=== PATIENT | male | born 1945 | race Caucasian/White ===

== ENCOUNTER 2016-03-08 12:01 | Emergency (ER) | payer MEDICARE, OTHER ==
[2016-03-08] MEDS ORDERED: SODIUM CHLORIDE 0.9% 1,000 ML IV ONE (13:28)
[2016-03-08] MEDS ORDERED: KETOROLAC 60 MG/2 ML VIAL IVP STA (13:28)
[2016-03-08] MEDS ORDERED: ONDANSETRON 4 MG/2 ML VIAL IVP STA (13:28)
[2016-03-08] MEDS ORDERED: HYDROmorphone 1 MG/ML SYRINGE IVP STA (13:28)
[2016-03-08] MEDS ORDERED: HYDROmorphone 1 MG/ML SYRINGE ONE (13:36)
[2016-03-08] MEDS ORDERED: ONDANSETRON 4 MG/2 ML VIAL ONE (13:36)
[2016-03-08] MEDS ORDERED: KETOROLAC 30 MG/ML VIAL ONE (13:36)
== END 2016-03-08 15:46 | disposition home or self-care (01) ==
DX: N13.2 Hydronephrosis with renal and ureteral calculous obstruction (principal); I10 Essential (primary) hypertension; E11.9 Type 2 diabetes mellitus without complications; Z79.84 Long term (current) use of oral hypoglycemic drugs; Z79.82 Long term (current) use of aspirin; Z87.891 Personal history of nicotine dependence
CPT/HCPCS: 36415; 74176; 80053; 81001; 83690; 96374; 96375; 99283; 99284; J1170

== ENCOUNTER 2016-03-13 18:39 | Emergency (ER) | payer MEDICARE, OTHER ==
[2016-03-13] MEDS ORDERED: ONDANSETRON 4 MG/2 ML VIAL IVP STA (18:52)
[2016-03-13] MEDS ORDERED: HYDROmorphone 1 MG/ML SYRINGE IVP STA (18:52)
[2016-03-13] MEDS ORDERED: KETOROLAC 60 MG/2 ML VIAL IVP STA (18:52)
[2016-03-13] MEDS ORDERED: SODIUM CHLORIDE 0.9% 1,000 ML IV ONE ×2 (18:52→18:58)
[2016-03-13] MEDS ORDERED: HYDROmorphone 1 MG/ML SYRINGE ONE (18:58)
[2016-03-13] MEDS ORDERED: KETOROLAC 30 MG/ML VIAL ONE (18:58)
[2016-03-13] MEDS ORDERED: ONDANSETRON 4 MG/2 ML VIAL ONE (18:58)
[2016-03-13] MEDS ORDERED: LACTATED RINGERS 1,000 ML IV STA (19:52)
== END 2016-03-13 19:52 | disposition home or self-care (01) ==
DX: N20.1 Calculus of ureter (principal); E86.0 Dehydration; I10 Essential (primary) hypertension; E11.9 Type 2 diabetes mellitus without complications; Z79.84 Long term (current) use of oral hypoglycemic drugs; Z79.82 Long term (current) use of aspirin; Z87.891 Personal history of nicotine dependence
CPT/HCPCS: 36415; 80048; 96374; 96375; 99283; 99285; J1170

== ENCOUNTER 2016-03-15 10:57 | Emergency (ER) | payer MEDICARE, OTHER ==
[2016-03-15] MEDS ORDERED: LACTATED RINGERS 1,000 ML IV STA (12:02)
[2016-03-15] MEDS ORDERED: KETOROLAC 60 MG/2 ML VIAL IVP STA (12:02)
[2016-03-15] MEDS ORDERED: ONDANSETRON 4 MG/2 ML VIAL IVP STA (12:02)
[2016-03-15] MEDS ORDERED: HYDROmorphone 1 MG/ML SYRINGE IVP STA (12:02)
[2016-03-15] MEDS ORDERED: HYDROmorphone 1 MG/ML SYRINGE ONE (12:12)
[2016-03-15] MEDS ORDERED: KETOROLAC 30 MG/ML VIAL ONE (12:12)
[2016-03-15] MEDS ORDERED: ONDANSETRON 4 MG/2 ML VIAL ONE (12:12)
== END 2016-03-15 13:49 | disposition home or self-care (01) ==
DX: N20.1 Calculus of ureter (principal); E11.9 Type 2 diabetes mellitus without complications; Z79.82 Long term (current) use of aspirin; E78.00 Pure hypercholesterolemia, unspecified; I10 Essential (primary) hypertension; Z79.84 Long term (current) use of oral hypoglycemic drugs; Z87.891 Personal history of nicotine dependence
CPT/HCPCS: 36415; 80048; 96374; 96375; 99283; 99284; J1170

== ENCOUNTER 2016-07-06 10:23 | Outpatient (CLI) | payer MEDICARE, OTHER | END 2016-07-06 10:24 | disposition home or self-care (01) | LOC: SC 10:23 | PROVIDERS: ATTEND Nurse Practitioner Family | DX: G47.33 Obstructive sleep apnea (adult) (pediatric) (principal) | CPT/HCPCS: 99214; G0463; 99212 ==

== ENCOUNTER 2016-08-04 09:40 | Outpatient (CLI) | payer MEDICARE, OTHER ==
[2016-08-04 13:27] LABS: CALCIUM 9.4 mg/dL (8.5-10.3); CREATININE 1.1 mg/dL (0.6-1.2); POTASSIUM 4.2 mmol/L (3.5-5.0)
[2016-08-04 14:18] LABS: HEMOGLOBIN A1C 0.91 g/dL
== END 2016-08-04 09:41 | disposition home or self-care (01) ==
LOC: LAB.WCP 09:40
PROVIDERS: ATTEND Family Medicine
DX: K21.9 Gastro-esophageal reflux disease without esophagitis (principal)
CPT/HCPCS: 36415; 80048; 82043; 83036; 84153

== ENCOUNTER 2016-11-08 07:48 | Outpatient (CLI) | payer MEDICARE, OTHER ==
[2016-11-08 12:37] LABS: BASOPHILS % (AUTO) 0.3 %; EOSINOPHILS # (AUTO) 0.2 10^3/uL (0.0-0.7); EOSINOPHILS % (AUTO) 2.4 %; HCT - HEMATOCRIT 44.1 % (42.0-52.0); HGB - HEMOGLOBIN 14.4 g/dL (14.0-18.0); LYMPHOCYTES # (AUTO) 2.7 10^3/uL (1.5-3.5); LYMPHOCYTES % (AUTO) 31.3 %; MEAN CORPUSCULAR HEMOGLOBIN 29.6 pg (27.0-31.0); MEAN CORPUSCULAR HGB CONC 32.7 g/dL (32.0-36.0); MEAN CORPUSCULAR VOLUME 90.5 fL (80.0-94.0); MEAN PLATELET VOLUME 8.8 fL (7.4-11.4); MONOCYTES # (AUTO) 0.6 10^3/uL (0.0-1.0); MONOCYTES % (AUTO) 6.7 %; NEUTROPHILS # (AUTO) 5.2 10^3/uL (1.5-6.6); NEUTROPHILS % (AUTO) 59.3 %; NUCLEATED RED BLOOD CELLS AUTO 0.1 /100WBC; RED BLOOD COUNT 4.87 10^6/uL (4.70-6.10); RED CELL DISTRIBUTION WIDTH 14.5 % (12.0-15.0); UNCORRECTED WHITE BLOOD COUNT 8.7 x10^3/uL; WHITE BLOOD COUNT 8.7 x10^3/uL (4.8-10.8)
[2016-11-08 12:53] LABS: ALBUMIN/GLOBULIN RATIO 1.5 (1.0-2.2); BILIRUBIN,TOTAL 1.4 mg/dL (0.2-1.0); BUN - BLOOD UREA NITROGEN 17 mg/dL (6-20); CALCIUM 9.1 mg/dL (8.5-10.3); CARBON DIOXIDE - CO2 31 mmol/L (21-32); CHLORIDE 100 mmol/L (101-111); CHOL/HDL RATIO 4.1 (<5.0); CHOLESTEROL 132 mg/dL; CREATININE 1.3 mg/dL (0.6-1.2); GFR - MDRD 55 (>89); GLUCOSE 139 mg/dL (70-100); HDL CHOLESTEROL 32 mg/dL; LDL/HDL RATIO 2.1 (<3.6); POTASSIUM 3.9 mmol/L (3.5-5.0); SODIUM 138 mmol/L (135-145); TOTAL PROTEIN 7.2 g/dL (6.7-8.2); TRIGLYCERIDES 162 mg/dL; VLDL CHOLESTEROL 32 mg/dL
[2016-11-08 13:42] LABS: HEMOGLOBIN A1C 0.85 g/dL
== END 2016-11-08 07:49 | disposition home or self-care (01) ==
LOC: LAB.WCP 07:48
PROVIDERS: ATTEND Family Medicine
DX: I10 Essential (primary) hypertension (principal); E11.9 Type 2 diabetes mellitus without complications; Z12.5 Encounter for screening for malignant neoplasm of prostate; E78.5 Hyperlipidemia, unspecified
CPT/HCPCS: 36415; 80053; 80061; 83036; 85025; G0103; 84153

== ENCOUNTER 2016-12-03 14:47 | Emergency (ER) | payer MEDICARE, OTHER ==
[2016-12-03 14:59] VITALS: BP 134/78
--- NOTE | 2016-12-03 15:41 | ED Physician Documentation ---
PD HPI LOWER EXT INJURY - Stated complaint Stated Complaint: LT FOOT PX - Chief complaint Chief Complaint: Ext Problem - History obtained from History obtained from: Patient - History of Present Illness PD HPI LOW EXT INJURY LOCATION: Left, Toe (2nd) Type of injury: Blunt / blow Where injury occurred: Home Timing - onset: Yesterday Timing - duration: Days (1) Timing - details: Abrupt onset, Still present Improved by: Rest, Immobilization Worsened by: Moving, Palpating Associated symptoms: No: Weakness, Numbness, Tingling Contributing factors: No: Anticoagulated Similar symptoms before: Has not had sx before Recently seen: Not recently seen - Additional information Additional information: 71-year-old diabetic male has stubbed his toe has a toenail that is avulsed and may have some bleeding from the toe. He is super concerned about his toes as he has had a prior crush injury to the left foot. He does get regular care by muffler tender. Review of Systems Constitutional: denies: Fever Eyes: denies: Decreased vision Ears: denies: Ear pain Nose: denies: Congestion Throat: denies: Sore throat Respiratory: denies: Cough GI: denies: Vomiting Musculoskeletal: denies: Neck pain, Back pain, Extremity pain PD PAST MEDICAL HISTORY - Past Medical History Past Medical History: Yes Cardiovascular: Hypertension, High cholesterol Endocrine/Autoimmune: Type 2 diabetes : Kidney stones - Past Surgical History Past Surgical History: Yes Ortho: Spine surgery HEENT: Tonsil/Adenoidectomy - Present Medications Home Medications: Ambulatory Orders Medication Instructions Recorded Confirmed Aspirin [Aspir 81] 81 mg PO DAILY 05/21/13 12/03/16 Esomeprazole Magnesium [Nexium] 20 mg PO DAILY 05/21/13 12/03/16 Hydrochlorothiazide 25 mg PO DAILY 05/21/13 12/03/16 Lisinopril 20 mg PO DAILY 05/21/13 12/03/16 Metformin HCl [Glucophage] 1,000 mg PO BID 05/21/13 12/03/16 Metoprolol Succinate [Toprol Xl] 50 mg PO DAILY 05/21/13 12/03/16 Simvastatin 20 mg PO DAILY 05/21/13 12/03/16 - Allergies Allergies/Adverse Reactions: Allergies Allergy/AdvReac Type Severity Reaction Status Date / Time Penicillins Allergy Severe swelling Verified 12/03/16 14:58 - Social History Does the pt smoke?: No Smoking Status: Never smoker Does the pt drink ETOH?: Yes ETOH Use: Wine, Beer, Liquor Does the pt have substance abuse?: No - Immunizations Immunizations are current?: Yes - POLST Patient has POLST: No PD ED PE NORMAL - Vitals Vital signs reviewed: Yes (normal) - General General: No acute distress, Well developed/nourished - HEENT HEENT: Atraumatic, PERRL - Respiratory Respiratory: No respiratory distress - Extremities Extremities: Other (The tiny toenail left on the second toe of the left foot is nearly completely avulsed. There is no sign of infection. ) - Neuro Neuro: Alert and oriented X 3, No motor deficit, No sensory deficit, Normal speech - Psych Psych: Normal mood, Normal affect Results - Vitals Vitals: Vital Signs - 24 hr 12/03/16 14:55 Temperature 36.4 C L Heart Rate 83 Respiratory 18 Rate Blood Pressure 134/78 H O2 Saturation 98 Oxygen O2 Source Room air PD MEDICAL DECISION MAKING - ED course Complexity details: considered differential, d/w patient ED course: partial avulsion of the toenail of the left foot without signs of infection. Departure - Departure Disposition: 01 Home, Self Care Clinical Impression: Avulsion of toenail of left foot Instructions: ED Avulsion Nail Complete Follow-Up: Demetrius Franklin MD [Primary Care Provider] - Discharge Date/Time: 12/03/16 15:47
== END 2016-12-03 15:47 | disposition home or self-care (01) ==
LOC: ED 14:47
DX: S91.205A Unspecified open wound of left lesser toe(s) with damage to nail, initial encounter (principal); W22.8XXA Striking against or struck by other objects, initial encounter; Y92.009 Unspecified place in unspecified non-institutional (private) residence as the place of occurrence of the external cause; E11.9 Type 2 diabetes mellitus without complications; Z79.84 Long term (current) use of oral hypoglycemic drugs; I10 Essential (primary) hypertension; Z79.82 Long term (current) use of aspirin
CPT/HCPCS: 99282; 99283

== ENCOUNTER 2017-03-07 12:53 | Emergency (ER) | payer MEDICARE, OTHER ==
[2017-03-07] MEDS ORDERED: LIDOCAINE-MPF 2% 9 ML in SODIUM CHLORIDE 0.9% 50 ML IM STA (13:18)
[2017-03-07] MEDS ORDERED: SODIUM CHLORIDE 0.9% 1,000 ML IV ONE (13:20)
--- NOTE | 2017-03-07 13:22 | ED Physician Documentation ---
History of Present Illness - Stated complaint Stated Complaint: R SIDE PX - Chief complaint Chief Complaint: Abd Pain - History obtained from History obtained from: Patient, Family - History of Present Illness Timing: How many days ago (2) Pain level max: 9 Pain level now: 9 Improved by: nothing Worsened by: nothing - Additonal information Additional information: Patient is a 71-year-old gentleman who presents to the emergency department with right flank pain for the past several days. States that this is similar to his prior kidney stones. Has been taking Tylenol at home for pain. His last ureteral stone was 6 x 8 mm and had to be retrieved by urology. No fevers. No vomiting. No dysuria. No gross hematuria. Review of Systems Ten Systems: 10 systems reviewed and negative Constitutional: denies: Fever, Chills GI: denies: Vomiting Skin: denies: Rash Musculoskeletal: denies: Neck pain, Back pain Neurologic: denies: Headache PD PAST MEDICAL HISTORY - Past Medical History Past Medical History: Yes Cardiovascular: Hypertension, High cholesterol Endocrine/Autoimmune: Type 2 diabetes : Kidney stones - Past Surgical History Past Surgical History: Yes Ortho: Spine surgery HEENT: Tonsil/Adenoidectomy - Present Medications Home Medications: Ambulatory Orders Medication Instructions Recorded Confirmed Aspirin [Aspir 81] 81 mg PO DAILY 05/21/13 03/07/17 Esomeprazole Magnesium [Nexium] 20 mg PO DAILY 05/21/13 03/07/17 Hydrochlorothiazide 25 mg PO DAILY 05/21/13 03/07/17 Lisinopril 20 mg PO DAILY 05/21/13 03/07/17 Metformin HCl [Glucophage] 1,000 mg PO BID 05/21/13 03/07/17 Metoprolol Succinate [Toprol Xl] 50 mg PO DAILY 05/21/13 03/07/17 Simvastatin 20 mg PO DAILY 05/21/13 03/07/17 Ibuprofen [Motrin] 800 mg PO Q8H PRN #30 tablet 03/07/17 Ondansetron Odt [Zofran] 4 mg TL Q6H PRN #10 tablet 03/07/17 Oxycodone HCl/Acetaminophen 1 - 2 each PO Q6H PRN #14 tablet 03/07/17 [Percocet 5-325 mg Tablet] - Allergies Allergies/Adverse Reactions: Allergies Allergy/AdvReac Type Severity Reaction Status Date / Time Penicillins Allergy Severe swelling Verified 12/03/16 14:58 - Social History Does the pt smoke?: No Smoking Status: Never smoker Does the pt drink ETOH?: Yes Does the pt have substance abuse?: No - Immunizations Immunizations are current?: Yes - POLST Patient has POLST: No PD ED PE NORMAL - Vitals Vital signs reviewed: Yes - General General: Alert and oriented X 3, Other (appears in pain) - HEENT HEENT: Moist mucous membranes - Neck Neck: Supple, no meningeal sign - Cardiac Cardiac: RRR - Respiratory Respiratory: No respiratory distress, Clear bilaterally - Abdomen Abdomen: Soft, Non tender, Non distended - Back Back: No CVA TTP - Derm Derm: Warm and dry - Neuro Neuro: Alert and oriented X 3 Results - Vitals Vitals: Vital Signs - 24 hr 03/07/17 03/07/17 03/07/17 12:57 13:46 13:59 Temperature 36.4 C L Heart Rate 77 63 Respiratory 20 60 H 22 Rate Blood Pressure 132/80 H 114/78 124/88 H O2 Saturation 96 95 96 03/07/17 15:39 Temperature 36.8 C Heart Rate 54 L Respiratory 18 Rate Blood Pressure 123/68 O2 Saturation 95 Oxygen O2 Source Room air - Labs Labs: Laboratory Tests 03/07/17 03/07/17 03/07/17 13:02 13:15 13:15 WBC 12.5 H RBC 5.27 Hgb 15.6 Hct 47.0 MCV 89.1 MCH 29.6 MCHC 33.3 RDW 14.0 Plt Count 274 MPV 8.1 Neut # 9.0 H Lymph # 2.3 Wilkinson # 1.0 Eos # 0.1 Baso # 0.0 Absolute Nucleated RBC 0.00 Nucleated RBC % 0.0 Sodium 136 Potassium 3.8 Chloride 99 L Carbon Dioxide 26 Anion Gap 11.0 BUN 24 H Creatinine 1.3 H Estimated GFR (MDRD) 55 L Glucose 151 H Calcium 9.3 Total Bilirubin 0.7 AST 19 ALT 12 Alkaline Phosphatase 71 Total Protein 8.2 Albumin 4.4 Globulin 3.8 Albumin/Globulin Ratio 1.2 Lipase 21 L Urine Color YELLOW Urine Clarity CLEAR Urine pH 5.5 Ur Specific [place] 1.025 Urine Protein NEGATIVE Urine Glucose (UA) NEGATIVE Urine Ketones NEGATIVE Urine Occult Blood MODERATE H Urine Nitrite NEGATIVE Urine Bilirubin NEGATIVE Urine Urobilinogen 0.2 (NORMAL) Ur Leukocyte Esterase NEGATIVE Urine RBC 11-25 H Urine WBC 0-3 Ur Squamous Epith Cells NONE SEEN Urine Crystals 0-2 Calcium Oxalate Urine Bacteria Rare Ur Microscopic Review INDICATED Urine Culture Comments NOT INDICATED - Rads (name of study) CT abd/pelvis Radiology: Prelim report reviewed, EMP read contemporaneously, See rad report ( Mild cardiomegaly. Large bilateral renal cysts. No obstructive uropathy. Left nephrolithiasis. Grade 1 spondylolisthesis L5-S1. Colonic diverticulosis. . Normal appendix. . No radiographic explanation for this gentleman's right-sided symptoms. ) PD MEDICAL DECISION MAKING - ED course Complexity details: reviewed old records, reviewed results, re-evaluated patient , considered differential, d/w patient, d/w family ED course: Patient is a 71-year-old male who presents to the emergency department with right flank pain. Consistent with his prior history of ureteral stones. Pain resolved in the emergency department. Possible that he passed the stone? He does have calcium oxalate as well as blood in his urine. Will prescribe pain medication for home in case the pain returns. He is well-appearing, nontoxic. Afebrile. No evidence of infected stone. Patient counseled regarding signs and symptoms for which I believe and urgent re-evaluation would be necessary. Patient with good understanding of and agreement to plan and is comfortable going home at this time This document was made in part using voice recognition software. While efforts are made to proofread this document, sound alike and grammatical errors may occur. is driving him home Departure - Departure Disposition: 01 Home, Self Care Clinical Impression: Ureteral stone Condition: Good Instructions: ED Stone Renal W Colic Follow-Up: Demetrius Franklin MD [Primary Care Provider] - Within 1 week Prescriptions: Ibuprofen [Motrin] 800 mg PO Q8H PRN #30 tablet PRN Reason: PAIN &/OR FEVER Ondansetron Odt [Zofran] 4 mg TL Q6H PRN #10 tablet PRN Reason: Nausea / Vomiting Oxycodone HCl/Acetaminophen [Percocet 5-325 mg Tablet] 1 - 2 each PO Q6H PRN # 14 tablet PRN Reason: pain Comments: Return if you worsen. Drink plenty of fluids at home. Discharge Date/Time: 03/07/17 15:50
[2017-03-07] MEDS ORDERED: LIDOCAINE-MPF 2% 9 ML in SODIUM CHLORIDE 0.9% 50 ML IV STA (13:26)
[2017-03-07 13:34] LABS: BILIRUBIN,URINE NEGATIVE (NEGATIVE); GLUCOSE, URINE (UA) NEGATIVE (NEGATIVE); KETONES,URINE (UA) NEGATIVE (NEGATIVE); LEUKOCYTE ESTERASE, URINE NEGATIVE (NEGATIVE); NITRITE,URINE NEGATIVE (NEGATIVE); OCCULT BLOOD,URINE MODERATE (NEGATIVE); PH,URINE 5.5 PH (5.0-7.5); PROTEIN,URINE NEGATIVE (NEGATIVE); UROBILINOGEN,URINE 0.2 (NORMAL) E.U./dL (NORMAL)
[2017-03-07 13:36] LABS: CLARITY,URINE CLEAR (CLEAR)
[2017-03-07 13:40] LABS: BASOPHILS % (AUTO) 0.2 %; EOSINOPHILS # (AUTO) 0.1 10^3/uL (0.0-0.7); EOSINOPHILS % (AUTO) 1.1 %; HGB - HEMOGLOBIN 15.6 g/dL (14.0-18.0); LYMPHOCYTES # (AUTO) 2.3 10^3/uL (1.5-3.5); LYMPHOCYTES % (AUTO) 18.6 %; MEAN CORPUSCULAR HEMOGLOBIN 29.6 pg (27.0-31.0); MEAN CORPUSCULAR HGB CONC 33.3 g/dL (32.0-36.0); MEAN CORPUSCULAR VOLUME 89.1 fL (80.0-94.0); MEAN PLATELET VOLUME 8.1 fL (7.4-11.4); MONOCYTES % (AUTO) 7.8 %; NEUTROPHILS % (AUTO) 72.3 %; PLT - PLATELET COUNT 274 10^3/uL (130-450); RED BLOOD COUNT 5.27 10^6/uL (4.70-6.10); WHITE BLOOD COUNT 12.5 x10^3/uL (4.8-10.8)
[2017-03-07 13:41] LABS: ALBUMIN 4.4 g/dL (3.2-5.5); ALBUMIN/GLOBULIN RATIO 1.2 (1.0-2.2); BILIRUBIN,TOTAL 0.7 mg/dL (0.2-1.0); CALCIUM 9.3 mg/dL (8.5-10.3); CREATININE 1.3 mg/dL (0.6-1.2); TOTAL PROTEIN 8.2 g/dL (6.7-8.2)
[2017-03-07 13:54] LABS: BACTERIA,URINE Rare /HPF (None Seen); CRYSTALS,URINE 0-2 Calcium Oxalate /LPF; SQUAMOUS EPITHELIAL CELL,UR NONE SEEN (<= Few)
[2017-03-07] MEDS ORDERED: KETOROLAC 60 MG/2 ML VIAL IVP STA (14:00)
--- NOTE | 2017-03-07 15:04 | CT Preliminary Report ---
Exam: CT ABDOMEN/PELVIS W/O IMPRESSION: 1. Mild cardiomegaly. 2. Large bilateral renal cysts. No obstructive uropathy. 3. Left nephrolithiasis. 4. Grade 1 spondylolisthesis L5-S1. 5. Colonic diverticulosis. 6. Normal appendix. 7. No radiographic explanation for this gentleman's right-sided symptoms. [facility] SITE ID: [id number]
[2017-03-07] MEDS ORDERED: HYDROmorphone 1 MG/ML SYRINGE IVP STA (15:15)
--- NOTE | 2017-03-07 15:16 | CT Report ---
EXAM: CT ABDOMEN AND PELVIS EXAM DATE: 03/07/2017 02:21 PM. CLINICAL HISTORY: Right flank pain, history of renal stones. COMPARISONS: 03/08/2016. TECHNIQUE: Routine helical CT imaging was performed through the abdomen and pelvis. IV contrast: None . Enteric contrast: No. Reconstructions: Coronal and sagittal. In accordance with CT protocol optimization, one or more of the following dose reduction techniques w ere utilized for this exam: automated exposure control, adjustment of mA and/or KV based on patient s ize, or use of iterative reconstructive technique. FINDINGS: Lung Bases: Mild cardiomegaly. Liver: Calcified granulomata. Gallbladder/Bile Ducts: Unremarkable. Spleen: Normal. Pancreas: Normal. Adrenal Glands: Normal. Kidneys: Multiple 6 cm and smaller renal cysts bilaterally. No hydronephrosis. Both ureters are small. The 7 x 10 mm stone previously seen located within the medial aspect of the left renal calyx is now l ocated within an inferior left renal calyx. No additional renal stones. No solid renal mass lesions. Peritoneal Cavity/Bowel: Diverticular off the colon. No free fluid, free air or adenopathy. No masses or acute inflammatory process. The appendix is well visualized and normal. Pelvic Organs: Normal. The bladder and visualized pelvic organs are within normal limits. Vasculature: No aneurysms or other significant abnormality. Bones: Grade 1 spondylolisthesis L5-S1. Other: None. IMPRESSION: 1. Mild cardiomegaly. 2. Large bilateral renal cysts. No obstructive uropathy. 3. Left nephrolithiasis. 4. Grade 1 spondylolisthesis L5-S1. 5. Colonic diverticulosis. 6. Normal appendix. 7. No radiographic explanation for this gentleman's right-sided symptoms. [facility] Referring Provider Line: [phone] SITE ID: [id number]
[2017-03-07 15:40] VITALS: BP 123/68
== END 2017-03-07 15:50 | disposition home or self-care (01) ==
LOC: ED 12:53
DX: N20.2 Calculus of kidney with calculus of ureter (principal); Z87.442 Personal history of urinary calculi; N28.1 Cyst of kidney, acquired; I10 Essential (primary) hypertension; E78.00 Pure hypercholesterolemia, unspecified; E11.9 Type 2 diabetes mellitus without complications; Z79.84 Long term (current) use of oral hypoglycemic drugs; Z79.82 Long term (current) use of aspirin
CPT/HCPCS: 36415; 74176; 80053; 81001; 83690; 85025; 96361; 96374; 96375; 99284; J1170; J7040; 81003; 87086

== ENCOUNTER 2017-03-24 10:11 | Outpatient (CLI) | payer MEDICARE, OTHER | END 2017-03-24 10:12 | disposition home or self-care (01) | LOC: LAB 10:11 | PROVIDERS: ATTEND Family Medicine | DX: Z53.9 Procedure and treatment not carried out, unspecified reason (principal) ==

== ENCOUNTER 2017-03-24 11:00 | Outpatient (CLI) | payer MEDICARE, OTHER ==
[2017-03-24 13:13] LABS: HB2 TOTAL 16.3 g/dL; HEMOGLOBIN A1C 1.03 g/dL; HEMOGLOBIN A1C % 7.9 % (4.6-6.2)
[2017-03-24 13:22] LABS: ALBUMIN 4.2 g/dL (3.2-5.5); ALBUMIN/GLOBULIN RATIO 1.4 (1.0-2.2); CALCIUM 9.1 mg/dL (8.5-10.3); CREATININE 1.2 mg/dL (0.6-1.2); TOTAL PROTEIN 7.2 g/dL (6.7-8.2)
== END 2017-03-24 11:01 | disposition home or self-care (01) ==
LOC: LAB.WCP 11:00
PROVIDERS: ATTEND Family Medicine
DX: M76.899 Other specified enthesopathies of unspecified lower limb, excluding foot (principal); E11.9 Type 2 diabetes mellitus without complications
CPT/HCPCS: 36415; 80053; 83036

== ENCOUNTER 2017-07-25 08:00 | Outpatient (CLI) | payer MEDICARE, OTHER ==
[2017-07-25 13:16] LABS: ALBUMIN 3.9 g/dL (3.2-5.5); ALBUMIN/GLOBULIN RATIO 1.2 (1.0-2.2); CREATININE 1.3 mg/dL (0.6-1.2); TOTAL PROTEIN 7.1 g/dL (6.7-8.2)
[2017-07-25 19:50] LABS: HB2 TOTAL 16.9 g/dL; HEMOGLOBIN A1C 0.77 g/dL; HEMOGLOBIN A1C % 6.3 % (4.6-6.2)
== END 2017-07-25 08:01 | disposition home or self-care (01) ==
LOC: LAB.WCP 08:00
PROVIDERS: ATTEND Family Medicine
DX: E11.40 Type 2 diabetes mellitus with diabetic neuropathy, unspecified (principal); I10 Essential (primary) hypertension
CPT/HCPCS: 36415; 80053; 83036

== ENCOUNTER 2017-08-08 10:04 | Outpatient (CLI) | END 2017-08-08 10:05 | disposition home or self-care (01) | CPT/HCPCS: 99214; G0463 ==

== ENCOUNTER 2017-10-03 10:33 | Outpatient (CLI) | payer MEDICARE, OTHER ==
[2017-10-03 14:07] LABS: BASOPHILS % (AUTO) 0.2 %; EOSINOPHILS # (AUTO) 0.3 10^3/uL (0.0-0.7); EOSINOPHILS % (AUTO) 2.5 %; HGB - HEMOGLOBIN 14.9 g/dL (14.0-18.0); MEAN CORPUSCULAR HEMOGLOBIN 30.2 pg (27.0-31.0); MEAN CORPUSCULAR HGB CONC 33.7 g/dL (32.0-36.0); MEAN CORPUSCULAR VOLUME 89.4 fL (80.0-94.0); MEAN PLATELET VOLUME 8.4 fL (7.4-11.4); MONOCYTES # (AUTO) 0.6 10^3/uL (0.0-1.0); NEUTROPHILS # (AUTO) 6.6 10^3/uL (1.5-6.6); NEUTROPHILS % (AUTO) 62.3 %; PLT - PLATELET COUNT 255 10^3/uL (130-450); RED BLOOD COUNT 4.93 10^6/uL (4.70-6.10); WHITE BLOOD COUNT 10.5 x10^3/uL (4.8-10.8)
[2017-10-03 14:26] LABS: ALBUMIN 4.1 g/dL (3.2-5.5); ALBUMIN/GLOBULIN RATIO 1.3 (1.0-2.2); CALCIUM 9.1 mg/dL (8.5-10.3); CREATININE 0.5 mg/dL (0.6-1.2); TOTAL PROTEIN 7.3 g/dL (6.7-8.2)
== END 2017-10-03 10:34 | disposition home or self-care (01) ==
LOC: LAB.WCP 10:33
PROVIDERS: ATTEND Physician Assistant Medical
DX: R05 Cough (principal)
CPT/HCPCS: 36415; 80053; 85025

== ENCOUNTER 2018-01-10 10:21 | Outpatient (CLI) | payer MEDICARE, OTHER | END 2018-01-10 10:22 | disposition home or self-care (01) | LOC: SC 10:21 | PROVIDERS: ATTEND Nurse Practitioner Family | DX: G47.33 Obstructive sleep apnea (adult) (pediatric) (principal) | CPT/HCPCS: 99214; G0463; 99212 ==

== ENCOUNTER 2018-01-24 07:41 | Outpatient (CLI) | payer MEDICARE, OTHER ==
[2018-01-24 13:55] LABS: ALBUMIN 3.9 g/dL (3.2-5.5); ALBUMIN/GLOBULIN RATIO 1.1 (1.0-2.2); BILIRUBIN,TOTAL 0.8 mg/dL (0.2-1.0); CALCIUM 9.2 mg/dL (8.5-10.3); CREATININE 1.2 mg/dL (0.6-1.2); HB2 TOTAL 16.6 g/dL; HEMOGLOBIN A1C 0.81 g/dL; HEMOGLOBIN A1C % 6.6 % (4.6-6.2); TOTAL PROTEIN 7.6 g/dL (6.7-8.2)
== END 2018-01-24 23:59 | disposition home or self-care (01) ==
LOC: LAB.WCP 07:41
PROVIDERS: ATTEND Family Medicine
DX: N40.0 Benign prostatic hyperplasia without lower urinary tract symptoms (principal); E11.9 Type 2 diabetes mellitus without complications; N20.9 Urinary calculus, unspecified; I10 Essential (primary) hypertension
CPT/HCPCS: 36415; 80053; 82043; 83036

== ENCOUNTER 2018-04-11 10:01 | Outpatient (CLI) | payer MEDICARE, OTHER | END 2018-04-11 10:02 | disposition home or self-care (01) | LOC: SC 10:01 | PROVIDERS: ATTEND Nurse Practitioner Family | DX: G47.33 Obstructive sleep apnea (adult) (pediatric) (principal) | CPT/HCPCS: 99214; G0463; 99212 ==

== ENCOUNTER 2018-06-29 12:09 | Outpatient (CLI) | payer MEDICARE, OTHER ==
--- NOTE | 2018-06-29 14:19 | XRAY Report ---
Reason: COUGH Procedure Date: 06/29/2018 Accession Number: [id number] / [id number] Procedure: WCP - Chest 2 View X-Ray CPT Code: 71149 FULL RESULT: EXAM: CHEST RADIOGRAPHY EXAM DATE: 06/29/2018 12:22 PM. CLINICAL HISTORY: Cough. COMPARISON: CHEST 2 VIEW PA/LAT 10/03/2017 9:48 AM. TECHNIQUE: 2 views. FINDINGS: Lungs/Pleura: No focal opacities evident. No pleural effusion. No pneumothorax. Normal volumes. Mediastinum: Heart and mediastinal contours are unremarkable. Other: None. IMPRESSION: No acute airspace disease is detected. [facility]
== END 2018-06-29 12:10 | disposition home or self-care (01) ==
LOC: DI.WCP 12:09
PROVIDERS: ATTEND Family Medicine
DX: R05 Cough (principal)
CPT/HCPCS: 71046

== ENCOUNTER 2018-07-31 08:38 | Outpatient (CLI) | payer MEDICARE, OTHER ==
[2018-07-31 14:39] LABS: BASOPHILS % (AUTO) 0.3 %; EOSINOPHILS # (AUTO) 0.2 10^3/uL (0.0-0.7); EOSINOPHILS % (AUTO) 2.2 %; HGB - HEMOGLOBIN 14.5 g/dL (14.0-18.0); LYMPHOCYTES # (AUTO) 2.9 10^3/uL (1.5-3.5); LYMPHOCYTES % (AUTO) 35.6 %; MEAN CORPUSCULAR HEMOGLOBIN 29.3 pg (27.0-31.0); MEAN CORPUSCULAR HGB CONC 32.6 g/dL (32.0-36.0); MEAN CORPUSCULAR VOLUME 89.7 fL (80.0-94.0); MEAN PLATELET VOLUME 8.2 fL (7.4-11.4); MONOCYTES # (AUTO) 0.6 10^3/uL (0.0-1.0); MONOCYTES % (AUTO) 7.3 %; NEUTROPHILS # (AUTO) 4.5 10^3/uL (1.5-6.6); NEUTROPHILS % (AUTO) 54.6 %; PLT - PLATELET COUNT 237 10^3/uL (130-450); RED BLOOD COUNT 4.95 10^6/uL (4.70-6.10); RED CELL DISTRIBUTION WIDTH 14.5 % (12.0-15.0); WHITE BLOOD COUNT 8.2 x10^3/uL (4.8-10.8)
[2018-07-31 14:51] LABS: ALBUMIN 4.1 g/dL (3.2-5.5); ALBUMIN/GLOBULIN RATIO 1.2 (1.0-2.2); BILIRUBIN,TOTAL 0.7 mg/dL (0.2-1.0); CALCIUM 9.4 mg/dL (8.5-10.3); CREATININE 1.1 mg/dL (0.6-1.2); TOTAL PROTEIN 7.5 g/dL (6.7-8.2)
[2018-07-31 15:01] LABS: HB2 TOTAL 15.2 g/dL; HEMOGLOBIN A1C 0.83 g/dL; HEMOGLOBIN A1C % 7.1 % (4.6-6.2)
== END 2018-07-31 08:39 | disposition home or self-care (01) ==
LOC: LAB.WCP 08:38
PROVIDERS: ATTEND Family Medicine
DX: G47.9 Sleep disorder, unspecified (principal); E11.40 Type 2 diabetes mellitus with diabetic neuropathy, unspecified
CPT/HCPCS: 36415; 80053; 82043; 83036; 84443; 85025

== ENCOUNTER 2018-10-31 08:00 | Outpatient (CLI) | payer MEDICARE, OTHER ==
[2018-10-31 13:02] LABS: ALBUMIN 3.9 g/dL (3.2-5.5); ALBUMIN/GLOBULIN RATIO 1.3 (1.0-2.2); BILIRUBIN,TOTAL 0.6 mg/dL (0.2-1.0); CALCIUM 8.9 mg/dL (8.5-10.3); CREATININE 1.1 mg/dL (0.6-1.2); TOTAL PROTEIN 6.9 g/dL (6.7-8.2)
[2018-10-31 13:07] LABS: HEMOGLOBIN A1C 0.63 g/dL; HEMOGLOBIN A1C % 6.3 % (4.6-6.2)
== END 2018-10-31 23:59 | disposition home or self-care (01) ==
LOC: LAB.WCP 08:00
PROVIDERS: ATTEND Family Medicine
DX: M51.86 Other intervertebral disc disorders, lumbar region (principal); E11.9 Type 2 diabetes mellitus without complications
CPT/HCPCS: 36415; 80053; 83036

== ENCOUNTER 2018-12-10 08:32 | Outpatient (CLI) | payer MEDICARE, OTHER ==
--- NOTE | 2018-12-11 10:27 | XRAY Report ---
Reason: CALCULUS OF KIDNEY Procedure Date: 12/10/2018 Accession Number: [id number] / [id number] Procedure: XR - Abdomen 1 View X-Ray CPT Code: 79115 FULL RESULT: EXAM: ABDOMEN RADIOGRAPHY EXAM DATE: 12/10/2018 08:48 AM. CLINICAL HISTORY: Calculus of kidney. Kidney stone follow-up. COMPARISON: CT ABDOMEN/PELVIS W/O 03/07/2017. TECHNIQUE: 1 view. FINDINGS: Bowel Gas Pattern: Bowel gas pattern is normal. Moderate volume of stool in the colon. No bowel obstruction. No bowel wall thickening. No free air. No definitive calculi are seen within the expected position of the kidneys, ureters or bladder. In particular, the left lower pole renal calculus seen on the CT from 03/07/2017 is not definitively visualized radiographically. Other: Degenerative changes thoracic and lumbar spine. Changes are seen from 3-level lumbosacral fusion and intervertebral disk replacement. IMPRESSION: 1. No definitive calculi are identified within the expected position of the kidneys, ureters or bladder. 2. No bowel obstruction. Moderate volume of stool in the colon. [facility]
== END 2018-12-10 08:33 | disposition home or self-care (01) ==
LOC: DI 08:32
PROVIDERS: ATTEND Urology
DX: N20.0 Calculus of kidney (principal); Z12.5 Encounter for screening for malignant neoplasm of prostate
CPT/HCPCS: 36415; 74018; G0103; 84153

== ENCOUNTER 2018-12-10 08:53 | Outpatient (CLI) | payer MEDICARE, OTHER | END 2018-12-10 08:54 | disposition home or self-care (01) | LOC: LAB 08:53 | PROVIDERS: ATTEND Urology | DX: Z12.5 Encounter for screening for malignant neoplasm of prostate (principal) | CPT/HCPCS: 36415; 84153 ==

== ENCOUNTER 2019-04-10 10:00 | Outpatient (CLI) | payer MEDICARE, OTHER ==
[2019-04-10 11:11] VITALS: BP 120/60
--- NOTE | 2019-04-10 11:11 | SLEEP CARE CONSULTATION ---
Information from patient questionnaire entered by Adalgisa Hurtado. I have reviewed and concur with the information entered by Adalgisa Hurtado. This document represents the service I personally performed and the decisions made by me, Sherrell Dial, RN, MSN, ANALYTICAL LAB TECHNICIAN. History of Present Illness Previous diagnosis: Very Severe, Obstructive Sleep Apnea-Hypopnea Syndrome AHI: 61.9 Reason for follow up: annual (last seen 2019) Equipment type: CPAP Equipment obtained from: [employer] Mask style: Nasal Mask brand: Resmed Backup mask available: Yes (old mask ) Last cushion change: a few days ago CPAP Compliance Data - Data Reviewed with Patient Average duration of nightly device use: 9.75 Compliance rate %: 100 (180 days) Current pressure setting (cmH2O): 10-12 Humidity settin Average residual AHI: 2.6 Average large leak: 6.7 Subjective Patient concerns: reports: mask leak noise, nasal congestion (chronic - intermittent - uses saline nasal spray prior to CPAP and if needed during night / day). denies: aerophagia, mask discomfort, air blowing in eyes, condensation in mask/hose, dry mouth, nose, throat, epistaxis Observed to snore while using device: No Current pressure setting perceived as: comfortable On therapy, patient: reports: sleeping better, awakening more refreshed, being more awake and alert during the day, more rested overall. denies: drowsiness while driving Initial [place] Sleepiness Scale score: 3 Current [place] Sleepiness Scale score: 6 Allergies and Home Medications Known drug allergies: Yes (lipitor, ceftin, penicillin) Home medication list reviewed: Yes Allergy and home medication list: Medication List Medication Name (generic/name brand) Strength & Dosage Zocor (Simvastatin) 20mg tab one daily at bedtime Lisinopril 20mg tab one daily Hydrochlorothiazide 25mg tab one daily Toprol XL (Metoprolol Succinate) 50mg tab one daily Tamsulosin HCL 0.4mg cap one daily Glipizide XL 2.5mg tab one daily Nystatin 029915 unit/gm external cream Apply to affected areas daily Pantoprazole 40mg tab one daily metformin 1000mg bid Fluticasone Propionate 50mcg/act nasal One spray each nostril twice daily Aspirin 81mg tab one daily Ibuprofen 200mg tab 3-4 TID daily w/food Allergy List Ceftin Lipitor Penicillin G Potassium Review of Systems Review of systems same as previous: No (lumbar fushion in August with modified physical activity. ) Physical Exam Blood Pressure: 120/60 Cuff size: long Heart Rate: 50 O2 Saturation: 97 Height: 6 ft 3 in Weight: 295 lb Weight change since last visit: gained 11 pounds Body Mass Index: 36.8 BMI Classification: Obese Impression and Plan 1. Obstructive Sleep Apnea-Hypopnea Syndrome, very severe, with good treatment compliance and good apnea control. On CPAP therapy, the patient has better sleep quality and is more rested overall. Cleaning PAP equipment questions answered and importance of regular cleaning discussed. Daily cleaning of the mask can be incorporated into routine by completing during time when patient brushes teeth in the morning. Regularly cleaning the mask will reduce incidence of skin irritation that can occur from accumulation of skin oils on the skin as well as reduce mask leaks. The humidifier is recommended to be emptied daily to allow it to dry out thoroughly between use. The rest of the equipment should be cleaned weekly. Reference sheet given. Patient advised to check manual for further questions. He is advised to slightly tighten his headgear to reduce mask leaks. Mask leaks predominately from when patient sleeps on their side can be reduced by using a CPAP pillow. A CPAP pillow sample was shown. This and other styles can be bought online. Nasal congestion can be reduced with increasing the CPAP humidity as shown on sample device. The heated hose can be adjusted higher if condensation with higher humidity setting. He is already using saline nasal spray prior to CPAP but after Flonase. Thus he was advised to clean nose with saline before Flonase to improve adherence of medication but not wash it off as it seems he is doing now. He is also already taking a steamy shower before bed to assist nasal drainage. If continued nasal congestion, he is to follow up with Dr. Franklin for further evaluation and modification of his medication. Patient has gained weight. Currently patients BMI is 33.2 obesity class. Obesity increases the risk of apnea, CPAP pressure requirements and overall health risks especially cardiovascular and diabetes. Thus patient is advised to lose weight. Weight loss can be done with reducing portion size, reducing refined foods and balancing content with vegetables, fruit and protein. In addition tracking food intake will allow awareness of how to modify diet to achieve weight loss goals. Also eating more slowly will allow more awareness of food intake and enjoyment of food while assisting patient to modify intake at each meal. A diet consultation can be helpful in achieving optimal weight loss goals. The BMI chart was reviewed. The patient would like to reduce to 250 pounds bringing BMI down to about 31. Patient encouraged to discuss their weight loss goals with their PCP and consider a referral to a state trooper.The patient's CPAP pressure range should accommodate some weight loss.was changed to autoCPAP to accommodate for future weight loss. Symptoms to report for additional pressure adjustment discussed. Patient's apnea severity and rationale for treatment to reduce apnea, improve sleep quality and reduce cardiovascular and cerebrovascular events was reviewed. I also reviewed the benefit of consistent device use of CPAP for hypertension, diabetes, gastric reflux . * Continue CPAP pressure at 10-12 cmH2O * Implement methods to reduce nasal congestion. * Implement cleaning methods discussed. * Adjust mask * consider CPAP pillow * Notify me if snoring with mask or feeling that the pressure is too much or too little * Attempt to lose weight * Call this office if any problems using CPAP * Return for follow up in 1 year , or sooner if concerns arise Counseling Topics: Weight loss health impact, Discuss weight with PCP Time Spent with Patient (minutes): 40 I spent 100% of this visit face to face with the patient with greater than 50% of this was spent time counseling the patient and coordination of care.
== END 2019-04-10 10:01 | disposition home or self-care (01) ==
LOC: SC 10:00
PROVIDERS: ATTEND Nurse Practitioner Family
DX: G47.33 Obstructive sleep apnea (adult) (pediatric) (principal); E66.9 Obesity, unspecified; Z68.33 Body mass index [BMI] 33.0-33.9, adult
CPT/HCPCS: 99215; G0463; 99212

== ENCOUNTER 2019-07-30 08:00 | Outpatient (CLI) | payer MEDICARE, OTHER ==
[2019-07-30 12:08] LABS: ALBUMIN 4.3 g/dL (3.2-5.5); ALBUMIN/GLOBULIN RATIO 1.4 (1.0-2.2); ALKALINE PHOSPHATASE 64 IU/L (42-121); ALT ALANINE AMINOTRANSFERASE 16 IU/L (10-60); AST ASPARTATE AMINOTRANSFERASE 24 IU/L (10-42); BILIRUBIN,TOTAL 1.1 mg/dL (0.2-1.0); BUN - BLOOD UREA NITROGEN 24 mg/dL (6-20); CALCIUM 9.1 mg/dL (8.5-10.3); CARBON DIOXIDE - CO2 30 mmol/L (21-32); CHLORIDE 101 mmol/L (101-111); CHOL/HDL RATIO 3.9 (<5.0); CHOLESTEROL 131 mg/dL; CREATININE 1.2 mg/dL (0.6-1.2); GLUCOSE 121 mg/dL (70-100); HDL CHOLESTEROL 34 mg/dL; LDL CHOLESTEROL,CALCULATED 74 mg/dL; LDL/HDL RATIO 2.2 (<3.6); SODIUM 139 mmol/L (135-145); TOTAL PROTEIN 7.4 g/dL (6.7-8.2); VLDL CHOLESTEROL 23 mg/dL
[2019-07-30 12:15] LABS: CREATININE,URINE 167.3 mg/dL; HB2 TOTAL 15.2 g/dL; HEMOGLOBIN A1C 0.72 g/dL; HEMOGLOBIN A1C % 6.5 % (4.6-6.2); MICROALBUM/CREATININE RATIO,UR 6.6 ug/mg (<30.0); MICROALBUMIN,URINE 1.1 mg/dL (0-300.0)
== END 2019-07-30 23:59 | disposition home or self-care (01) ==
LOC: LAB.WCP 08:00
PROVIDERS: ATTEND Family Medicine
DX: E11.9 Type 2 diabetes mellitus without complications (principal); I10 Essential (primary) hypertension
CPT/HCPCS: 36415; 80053; 80061; 82043; 82570; 83036; 83721; 84443

== ENCOUNTER 2019-11-26 08:00 | Outpatient (CLI) | payer MEDICARE, OTHER ==
[2019-11-26 12:26] LABS: CALCIUM 9.2 mg/dL (8.5-10.3); CREATININE 1.2 mg/dL (0.6-1.2)
[2019-11-26 12:42] LABS: CREATININE,URINE 217.1 mg/dL; MICROALBUM/CREATININE RATIO,UR 5.5 ug/mg (<30.0); MICROALBUMIN,URINE 1.2 mg/dL (0-300.0)
[2019-11-26 12:44] LABS: HEMOGLOBIN A1c% 6.9 % (4.27-6.07)
== END 2019-11-26 23:59 | disposition home or self-care (01) ==
LOC: LAB.WCP 08:00
PROVIDERS: ATTEND Family Medicine
DX: E11.9 Type 2 diabetes mellitus without complications (principal)
CPT/HCPCS: 36415; 80048; 82043; 82570; 83036

== ENCOUNTER 2020-03-31 07:28 | Outpatient (CLI) | payer MEDICARE, OTHER ==
[2020-03-31 12:41] LABS: HEMOGLOBIN A1c% 6.7 % (4.27-6.07)
[2020-03-31 12:44] LABS: CREATININE,URINE 210.9 mg/dL; MICROALBUM/CREATININE RATIO,UR 5.2 ug/mg (<30.0); MICROALBUMIN,URINE 1.1 mg/dL (0-300.0)
[2020-03-31 13:20] LABS: CREATININE 1.2 mg/dL (0.6-1.2)
== END 2020-03-31 23:59 | disposition home or self-care (01) ==
LOC: LAB.WCP 07:28
PROVIDERS: ATTEND Family Medicine
DX: E11.9 Type 2 diabetes mellitus without complications (principal)
CPT/HCPCS: 36415; 80048; 82043; 82570; 83036

== ENCOUNTER 2020-04-13 10:19 | Outpatient (CLI) | payer MEDICARE, OTHER ==
--- NOTE | 2020-04-13 11:00 | SLEEP CARE CONSULTATION ---
Information from patient questionnaire entered by Adalgisa Hurtado. I have reviewed and concur with the information entered by Adalgisa Hurtado. This document represents the service I personally performed and the decisions made by me, Анна James MD, [facility]. History of Present Illness Service Date and Time: 04/13/2020 1019 Previous diagnosis: Very Severe, Obstructive Sleep Apnea-Hypopnea Syndrome AHI: 61.9 (in 2007) Reason for follow up: annual (last seen 03/2019) Equipment type: CPAP Equipment obtained from: [employer] Mask style: Nasal Prior sleep studies: Yes Year and Where: 2007 - [facility] Type of Sleep Study: Polysomnography HPI additional information: HPI: Mr. Wesley was diagnosed to have very severe obstructive sleep apnea- hypopnea syndrome and returns today for follow up of CPAP therapy. The patient purchased the device from [employer] and was fitted with a nasal mask. He uses the device nightly and all through the night. The compliance report shows that he uses the device 180 nights out of the past 180 nights, averaging 9.8 hours a night. He complains of no particular problem with the device such as soreness on the face, dry nose, epistaxis, nasal congestion or headache. He thinks that the pressure of 10 - 12 cmH2O is comfortable. On the CPAP therapy he notices improvement in his sleep quality, and that he wakes up feeling fresher in the morning and more awake/alert during the day. [place] Sleepiness Scale score is 4. His notices no snore at all. The average residual AHI is 2.6 ; and average air leak is 3.1 L/minute. The 90th percentile pressure is 11.9 cmH2O. CPAP Compliance Data - Data Reviewed with Patient Average duration of nightly device use: 9 hr 47 min Compliance rate %: 100 (180 days) Current pressure setting (cmH2O): 10-12 Average residual AHI: 2.6 Subjective Missed days of use due to: reports: other (lost power) Initial [place] Sleepiness Scale score: 3 (in 2007) Current [place] Sleepiness Scale score: 5 Allergies and Home Medications Drug allergies reviewed: Yes Home medication list reviewed: Yes Review of Systems Review of systems same as previous: Yes Physical Exam Height: 6 ft 3 in Weight: 275 lb Body Mass Index: 34.3 BMI Classification: Obese Impression and Plan IMPRESSION: 1. Obstructive Sleep Apnea-Hypopnea Syndrome, very severe, with the patient continuing to do well on nasal CPAP therapy. He has excellent compliance and significant clinical benefits. The current pressure appears effective and comfortable. Overall, he is very satisfied with treatment and plans to continue with it long-term. No adjustment is necessary today. PLAN: 1. Continue with autoCPAP set at 10 - 12 cm H2O. 2. Try to lose weight 3. Return in one year for follow up or earlier if there is any problem with the treatment. Follow up recommended for: Weight management Visit Type: In Office Time Spent with Patient (minutes): 15 Provider Statement: I spent 100% of the Face to Face Visit with the patient with greater than 50% spent counseling the patient and coordination of care.
== END 2020-04-13 10:20 | disposition home or self-care (01) ==
LOC: SC 10:19
PROVIDERS: ATTEND Internal Medicine Pulmonary Disease
DX: G47.33 Obstructive sleep apnea (adult) (pediatric) (principal); E66.9 Obesity, unspecified; Z68.34 Body mass index [BMI] 34.0-34.9, adult
CPT/HCPCS: 99212; G0463

== ENCOUNTER 2020-06-02 12:12 | Outpatient (CLI) | payer MEDICARE, OTHER ==
--- NOTE | 2020-06-02 12:50 | XRAY Report ---
PROCEDURE: Knee 2 View LT INDICATIONS: ARTHRITIS, L KNEE TECHNIQUE: 2 views of the left knee(s) were acquired. COMPARISON: None. FINDINGS: Bones: No fractures or dislocations. Moderate tricompartmental osteoarthritis is seen more prominent in medial femoral tibial compartment. No suspicious bony lesions. Soft tissues: Moderate suprapatellar joint effusion is seen. No suspicious soft tissue calcification s. IMPRESSION: Moderate tricompartmental osteoarthritis and moderate amount of joint effusion. Reviewed by: Abhay Angeles MD on 06/02/2020 11:49 AM [facility] Approved by: Abhay Angeles MD on 06/02/2020 11:49 AM [facility] Station ID: [id number]
== END 2020-06-02 23:59 | disposition home or self-care (01) ==
LOC: DI.N 12:12
PROVIDERS: ATTEND Family Medicine
DX: M17.12 Unilateral primary osteoarthritis, left knee (principal); M25.462 Effusion, left knee

== ENCOUNTER 2020-09-01 09:41 | Outpatient (CLI) | payer MEDICARE, OTHER ==
--- NOTE | 2020-09-01 10:24 | XRAY Report ---
PROCEDURE: Foot 3 View BILAT INDICATIONS: BL FOOT PAIN TECHNIQUE: 3 views of the foot were acquired. COMPARISON: None. FINDINGS: Bones: Postsurgical changes are noted involving left posterior calcaneus near Achilles tendon insert ion site suggest clinical correlation. Moderate right-sided hallux valgus is seen. Osteoarthritic liliya nges are noted in bilateral midfoot and forefoot joints more prominent in right first MTP joint. No g ross bony erosive changes are seen. Dorsal enthesophyte formation in left calcaneus is seen. No suspi cious bony lesions. Soft tissues: No tibiotalar joint effusion. Left Achilles tendon appears slightly thickened at its i nsertion on posterior calcaneus which may represent postsurgical changes. No full-thickness tendon ru pture. IMPRESSION: 1. Osteoarthritic changes throughout bilateral midfoot and forefoot more prominent in right first MTP joint. Moderate right hallux valgus. No fracture or dislocation. No bony erosive changes. 2. Postsurgical changes in left heel as above suggest clinical correlation. Thickened left Achilles t endon at its posterior calcaneal insertion which may represent tendinosis versus post surgical change s. No full-thickness tendon rupture. Reviewed by: Abhay Angeles MD on 09/01/2020 10:23 AM PDT Approved by: Abhay Angeles MD on 09/01/2020 10:23 AM PDT Station ID: [id number]
== END 2020-09-01 09:42 | disposition home or self-care (01) ==
LOC: DI 09:41
PROVIDERS: ATTEND Podiatrist
DX: M79.671 Pain in right foot (principal); M79.672 Pain in left foot; M19.072 Primary osteoarthritis, left ankle and foot; M19.071 Primary osteoarthritis, right ankle and foot; M20.11 Hallux valgus (acquired), right foot

== ENCOUNTER → 2020-09-23 | Outpatient (CLI) | payer MEDICARE, OTHER ==
[2020-09-23 13:21] LABS: ALBUMIN 4.4 g/dL (3.2-5.5); ALBUMIN/GLOBULIN RATIO 1.4 (1.0-2.2); ALKALINE PHOSPHATASE 61 IU/L (42-121); ALT ALANINE AMINOTRANSFERASE 20 IU/L (10-60); AST ASPARTATE AMINOTRANSFERASE 23 IU/L (10-42); BILIRUBIN,TOTAL 1.1 mg/dL (0.2-1.0); BUN - BLOOD UREA NITROGEN 19 mg/dL (6-20); CALCIUM 9.2 mg/dL (8.5-10.3); CARBON DIOXIDE - CO2 31 mmol/L (21-32); CHLORIDE 98 mmol/L (101-111); CHOL/HDL RATIO 4.1 (<5.0); CHOLESTEROL 151 mg/dL; CREATININE 1.2 mg/dL (0.6-1.2); GFR - MDRD 59 (>89); GLUCOSE 157 mg/dL (70-100); HDL CHOLESTEROL 37 mg/dL; LDL CHOLESTEROL,CALCULATED 73 mg/dL; POTASSIUM 4.1 mmol/L (3.5-5.0); SODIUM 140 mmol/L (135-145); TOTAL PROTEIN 7.6 g/dL (6.7-8.2); TRIGLYCERIDES 205 mg/dL; VLDL CHOLESTEROL 41 mg/dL
[2020-09-23 13:59] LABS: ESTIMATED AVERAGE GLUCOSE 169 mg/dL (70-100); HEMOGLOBIN A1c% 7.5 % (4.27-6.07)
== END ==
LOC: LAB.WCP 07:00
PROVIDERS: ATTEND Physician Assistant Medical
DX: E11.9 Type 2 diabetes mellitus without complications (principal)
CPT/HCPCS: 36415; 80053; 80061; 83036; 83721

== ENCOUNTER 2020-12-22 07:31 | Outpatient (CLI) | payer MEDICARE, OTHER ==
[2020-12-22 12:21] LABS: CALCIUM 9.4 mg/dL (8.5-10.3); CREATININE 1.2 mg/dL (0.6-1.2)
[2020-12-22 13:03] LABS: ESTIMATED AVERAGE GLUCOSE 171 mg/dL (70-100); HEMOGLOBIN A1c% 7.6 % (4.27-6.07)
== END 2020-12-22 23:59 | disposition home or self-care (01) ==
LOC: LAB.WCP 07:31
PROVIDERS: ATTEND Physician Assistant Medical
DX: E11.9 Type 2 diabetes mellitus without complications (principal)
CPT/HCPCS: 36415; 80048; 83036

== ENCOUNTER 2021-03-23 07:43 | Outpatient (CLI) | payer MEDICARE, OTHER ==
[2021-03-23 14:03] LABS: ALBUMIN 4.1 g/dL (3.2-5.5); ALBUMIN/GLOBULIN RATIO 1.5 (1.0-2.2); ALKALINE PHOSPHATASE 52 IU/L (42-121); ALT ALANINE AMINOTRANSFERASE 18 IU/L (10-60); AST ASPARTATE AMINOTRANSFERASE 24 IU/L (10-42); BILIRUBIN,TOTAL 0.9 mg/dL (0.2-1.0); BUN - BLOOD UREA NITROGEN 18 mg/dL (6-20); CALCIUM 9.1 mg/dL (8.5-10.3); CARBON DIOXIDE - CO2 29 mmol/L (21-32); CHLORIDE 99 mmol/L (101-111); CHOL/HDL RATIO 3.6 (<5.0); CHOLESTEROL 130 mg/dL; CREATININE 1.3 mg/dL (0.6-1.2); GFR - MDRD 54 (>89); GLUCOSE 122 mg/dL (70-100); HDL CHOLESTEROL 36 mg/dL; LDL CHOLESTEROL,CALCULATED 68 mg/dL; LDL/HDL RATIO 1.9 (<3.6); POTASSIUM 4.1 mmol/L (3.5-5.0); SODIUM 138 mmol/L (135-145); TOTAL PROTEIN 6.9 g/dL (6.7-8.2); TRIGLYCERIDES 132 mg/dL; VLDL CHOLESTEROL 26 mg/dL
[2021-03-23 14:41] LABS: ESTIMATED AVERAGE GLUCOSE 163 mg/dL (70-100); HEMOGLOBIN A1c% 7.3 % (4.27-6.07)
== END 2021-03-23 07:44 | disposition home or self-care (01) ==
LOC: LAB.N 07:43
PROVIDERS: ATTEND Physician Assistant Medical
DX: E11.9 Type 2 diabetes mellitus without complications (principal)
CPT/HCPCS: 36415; 80053; 80061; 83036; 83721

== ENCOUNTER 2021-07-21 08:20 | Outpatient (CLI) | payer MEDICARE, OTHER ==
[2021-07-21 11:59] LABS: CALCIUM 9.2 mg/dL (8.5-10.3); CREATININE 1.1 mg/dL (0.6-1.2); POTASSIUM 4.3 mmol/L (3.5-5.0)
[2021-07-21 12:04] LABS: ESTIMATED AVERAGE GLUCOSE 146 mg/dL (70-100); HEMOGLOBIN A1c% 6.7 % (4.27-6.07)
== END 2021-07-21 08:21 | disposition home or self-care (01) ==
LOC: LAB.N 08:20
PROVIDERS: ATTEND Physician Assistant Medical
DX: E11.9 Type 2 diabetes mellitus without complications (principal)
CPT/HCPCS: 36415; 80048; 83036

== ENCOUNTER 2021-08-21 13:09 | Emergency (ER) | payer MEDICARE, OTHER ==
[2021-08-21 13:24] VITALS: BP 143/72
[2021-08-21] MEDS ORDERED: predniSONE 20 MG TABLET PO STA (13:41)
--- NOTE | 2021-08-21 13:44 | ED Physician Documentation ---
History of Present Illness - Stated complaint Stated Complaint: LT KNEE PX - Chief complaint Chief Complaint: Ext Problem - Additonal information Additional information: 76-year-old male presents emergency department for evaluation of acute pain that began in his left knee about 2 days ago. He does have a history of recurrent pain in this knee that he has had improvement with after receiving a steroid injection. He denies any recent falls or trauma. No fevers or swelling but he has increased pain especially when bearing weight on the knee. An x-ray in May 2020 demonstrated moderate tricompartmental osteoarthritis of the knee. Rickie mendez is a diabetic with reasonable blood glucose control at home on glyburide and metformin. Review of Systems Constitutional: denies: Fever, Chills Eyes: reports: Reviewed and negative Nose: reports: Reviewed and negative Throat: reports: Reviewed and negative Musculoskeletal: reports: Joint pain Neurologic: reports: Reviewed and negative PD PAST MEDICAL HISTORY - Past Medical History Cardiovascular: Hypertension, High cholesterol Endocrine/Autoimmune: Type 2 diabetes : Kidney stones - Past Surgical History Past Surgical History: Yes Ortho: Spine surgery HEENT: Tonsil/Adenoidectomy - Present Medications Home Medications: Ambulatory Orders Medication Instructions Recorded Confirmed Aspirin [Aspir 81] 81 mg PO DAILY 05/21/13 03/07/17 Esomeprazole Magnesium [Nexium] 20 mg PO DAILY 05/21/13 03/07/17 Lisinopril 20 mg PO DAILY 05/21/13 03/07/17 Metformin HCl [Glucophage] 1,000 mg PO BID 05/21/13 03/07/17 Metoprolol Succinate [Toprol Xl] 50 mg PO DAILY 05/21/13 03/07/17 Simvastatin 20 mg PO DAILY 05/21/13 03/07/17 hydroCHLOROthiazide 25 mg PO DAILY 05/21/13 03/07/17 [Hydrochlorothiazide] Ibuprofen [Motrin] 800 mg PO Q8H PRN #30 tablet 03/07/17 Ondansetron Odt [Zofran] 4 mg TL Q6H PRN #10 tablet 03/07/17 Oxycodone HCl/Acetaminophen 1 - 2 each PO Q6H PRN #14 tablet 03/07/17 [Percocet 5-325 mg Tablet] predniSONE [Deltasone] 40 mg PO DAILY 4 Days #8 tablet 08/21/21 - Allergies Allergies/Adverse Reactions: Allergies Allergy/AdvReac Type Severity Reaction Status Date / Time Penicillins Allergy Severe swelling Verified 08/21/21 13:19 - Social History Does the pt smoke?: No Smoking Status: Never smoker Does the pt drink ETOH?: Yes Does the pt have substance abuse?: No - Immunizations Immunizations are current?: Yes - POLST Patient has POLST: No PD ED PE EXPANDED - General General: Alert, No acute distress - Extremities Extremities: Right knee (normal flexion/extension of knee. no laxity. no swelling,erythema. Can bear partial weight. antlgic gait. most of the pain is generalized when weight bearing. ) Results - Vitals Vitals: Vital Signs - 24 hr 08/21/21 13:21 Temperature 36.8 C Heart Rate 51 L Respiratory 16 Rate Blood Pressure 143/72 H O2 Saturation 97 Oxygen O2 Source Room air - Rads (name of study) left knee Radiology: EMP read indepedently (Moderate to severe tricompartmental arthritis) PD MEDICAL DECISION MAKING - ED course Complexity details: reviewed results, re-evaluated patient, considered differential, d/w patient, d/w family ED course: 76-year-old Diabetic male presents emergency department for evaluation of acute left knee pain that began a few days ago. No inciting events or trauma. He does historically have a history of knee pain for which he received a steroid injection in May 2020. On exam there is no swelling erythema or laxity. X-ray again confirms worsening tricompartmental arthritis. No swelling, fevers micromotion tenderness or erythema to suggest joint infection.This gentleman is started on a 5-day course of prednisone. He is also given a walker to help offload pressure on the knee. He is encouraged close follow-up with his primary care provider to obtain referral to orthopedics. He may benefit from physical therapy and/or consideration of repeat steroid injections but this will be deferred to the specialist. Ultimately he may need a joint replacement. He is encouraged to continue the Voltaren gel as well as the gabapentin. We will take Tylenol and ibuprofen once completed with a steroid course emergent return precautions were discussed for worsening symptoms. Departure - Departure Disposition: 01 Home, Self Care Clinical Impression: Osteoarthritis of left knee Qualifiers: Osteoarthritis type: primary Qualified Code(s): M17.12 - Unilateral primary osteoarthritis, left knee Condition: Stable Record reviewed to determine appropriate education?: Yes Instructions: Knee Osteoarthritis Prescriptions: predniSONE [Deltasone] 40 mg PO DAILY 4 Days #8 tablet Comments: Andrew you are seen today in the emergency department because you have recurrent pain in the left knee. The x-ray again demonstrates arthritis of the knee which may be worsening. I think it is important a follow-up with your primary care provider to obtain referral to an orthopedic doctor. You may benefit from a trial course of physical therapy or consideration of repeat knee injections with steroids. Ultimately they may need to consider an MRI and or a joint replacement. In order to manage the pain I am starting you on a course of prednisone. This prescription has been sent to the [facility] in [place]. Your first dose was given today in the ER please fill the prescription tomorrow and take as directed. In general you can continue the Voltaren gel and gabapentin. I would like you to take Tylenol 500 mg with food 3 times a day. Once you are done with the steroid you can consider taking ibuprofen. If at any point you have falls or trauma, fevers knee redness then please return to the ER for repeat evaluation. I would like you to use the walker when you are having a flare of knee pain to make your gait more stable.
--- NOTE | 2021-08-21 14:10 | XRAY Report ---
PROCEDURE: Knee 3 View LT INDICATIONS: pain TECHNIQUE: 3 views of the left knee(s) were acquired. COMPARISON: None. FINDINGS: Bones: There are tricompartmental degenerative changes. There is complete loss of the joint space me dially. No fractures or dislocations. No suspicious bony lesions. Soft tissues: There is a moderate suprapatellar joint effusion Sherley. No suspicious soft tissue ca lcifications. IMPRESSION: Tricompartmental degenerative changes consistent with osteoarthritis. Reviewed by: Dayton Ledezma on 08/21/2021 1:08 PM KASSIDY Approved by: Dayton Ledezma on 08/21/2021 1:08 PM KASSIDY Station ID: [id number]
== END 2021-08-21 14:15 | disposition home or self-care (01) ==
LOC: ED 13:09
DX: M17.12 Unilateral primary osteoarthritis, left knee (principal); I10 Essential (primary) hypertension; E11.9 Type 2 diabetes mellitus without complications; Z79.84 Long term (current) use of oral hypoglycemic drugs
CPT/HCPCS: 73562; 99283; J7512

== ENCOUNTER 2021-09-20 10:13 | Outpatient (CLI) | payer MEDICARE, OTHER ==
[2021-09-20 11:01] VITALS: BP 139/84
--- NOTE | 2021-09-20 11:01 | SLEEP CARE CONSULTATION ---
Information from patient questionnaire entered by Polly Stoll MA. I have reviewed and concur with the information entered by Polly Stoll MA. This document represents the service I personally performed and the decisions made by me, Анна James MD, [facility]. History of Present Illness Service Date and Time: 09/20/2021 1013 Previous diagnosis: Very Severe, Obstructive Sleep Apnea-Hypopnea Syndrome AHI: 61.9 (in 2007) Reason for follow up: annual (LAST SEEN 03/2020, NINA KEATING 08/22/2018, ) Equipment type: CPAP Equipment obtained from: [employer] Mask style: Nasal Prior sleep studies: Yes Year and Where: 2007 - [facility] Type of Sleep Study: Polysomnography HPI additional information: Mr. Wesley was diagnosed to have very severe obstructive sleep apnea-hypopnea syndrome and returns today for follow up of CPAP therapy. The patient purchased the device from [employer] and was fitted with a nasal mask. He continues to use the device nightly and all through the night. The compliance report shows that he uses the device 180 nights out of the past 180 nights, averaging 9.8 hours a night. He complains of no particular problem with the device such as soreness on the face, dry nose, epistaxis, nasal congestion or headache. He thinks that the pressure of 10 - 12 cmH2O is comfortable. On the CPAP therapy he notices improvement in his sleep quality, and that he wakes up feeling fresher in the morning and more awake/alert during the day. Armstrong Sleepiness Scale score is 4. His notices no snore at all. The average residual AHI is 3.8; and average air leak is 4.4 L/minute. The 90th percentile pressure is 11.9 cmH2O. Sleep Study - Results Type of Sleep Study: Polysomnography Prior sleep studies: Yes Year and Where: 2007 - [facility] Subjective Initial Armstrong Sleepiness Scale score: 3 (in 2007) Allergies and Home Medications Drug allergies reviewed: Yes Home medication list reviewed: Yes Allergy and home medication list: Allergies Penicillins Allergy (Severe, Verified 08/21/21 13:19) swelling Review of Systems Review of systems same as previous: Yes Physical Exam Vital signs obtained and entered by: Eva STOLL CMA AARINKU Blood Pressure: 139/84 (RIGHT, PULSE 68, RESP 20, ) Heart Rate: 68 O2 Saturation: 68 Height: 6 ft 3 in Weight: 275 lb (CLOTHES) Body Mass Index: 34.3 BMI Classification: Obese Impression and Plan IMPRESSION: 1. Obstructive Sleep Apnea-Hypopnea Syndrome, very severe, with the patient continuing to do well on nasal CPAP therapy. He has excellent compliance and significant clinical benefits. The current pressure appears effective and comfortable. Overall, he is very satisfied with treatment and plans to continue with it long-term. No adjustment is necessary today. PLAN: 1. Continue with autoCPAP set at 10 - 12 cm H2O. 2. Try to lose weight 3. Return in one year for follow up or earlier if there is any problem with the treatment. He should be eligible for a new machine then (his original machine was from 2018), Counseling Topics: Weight control Follow up with Sleep Care in: 1 year Visit Type: In Office Time Spent with Patient (minutes): 20 Provider Statement: I spent 100% of the Face to Face Visit with the patient with greater than 50% spent counseling the patient and coordination of care.
== END 2021-09-20 10:14 | disposition home or self-care (01) ==
LOC: SC 10:13
PROVIDERS: ATTEND Internal Medicine Pulmonary Disease
DX: G47.33 Obstructive sleep apnea (adult) (pediatric) (principal); E66.9 Obesity, unspecified; Z68.34 Body mass index [BMI] 34.0-34.9, adult
CPT/HCPCS: 99213; G0463; 99212

== ENCOUNTER 2022-01-18 08:01 | Outpatient (CLI) | payer MEDICARE, OTHER ==
[2022-01-18 12:21] LABS: ALBUMIN 4.1 g/dL (3.2-5.5); ALBUMIN/GLOBULIN RATIO 1.2 (1.0-2.2); ALKALINE PHOSPHATASE 59 IU/L (42-121); ALT ALANINE AMINOTRANSFERASE 10 IU/L (10-60); AST ASPARTATE AMINOTRANSFERASE 19 IU/L (10-42); BILIRUBIN,TOTAL 0.7 mg/dL (0.2-1.0); BUN - BLOOD UREA NITROGEN 26 mg/dL (6-20); CALCIUM 9.3 mg/dL (8.5-10.3); CARBON DIOXIDE - CO2 29 mmol/L (21-32); CHLORIDE 101 mmol/L (101-111); CHOL/HDL RATIO 4.5 (<5.0); CHOLESTEROL 143 mg/dL; CREATININE 1.8 mg/dL (0.6-1.2); GFR - MDRD 37 (>89); GLUCOSE 117 mg/dL (70-100); HDL CHOLESTEROL 32 mg/dL; LDL CHOLESTEROL,CALCULATED 73 mg/dL; LDL/HDL RATIO 2.3 (<3.6); POTASSIUM 4.3 mmol/L (3.5-5.0); SODIUM 140 mmol/L (135-145); TOTAL PROTEIN 7.5 g/dL (6.7-8.2); TRIGLYCERIDES 190 mg/dL; VLDL CHOLESTEROL 38 mg/dL
[2022-01-18 12:35] LABS: ESTIMATED AVERAGE GLUCOSE 134 mg/dL (70-100); HEMOGLOBIN A1c% 6.3 % (4.27-6.07)
== END 2022-01-18 08:02 | disposition home or self-care (01) ==
LOC: LAB.N 08:01
PROVIDERS: ATTEND Physician Assistant Medical
DX: E11.9 Type 2 diabetes mellitus without complications (principal)
CPT/HCPCS: 36415; 80053; 80061; 83036; 83721

== ENCOUNTER 2022-01-19 11:09 | Outpatient (CLI) | payer MEDICARE, OTHER ==
[2022-01-19 18:42] LABS: BILIRUBIN,URINE NEGATIVE (NEGATIVE); GLUCOSE, URINE (UA) NEGATIVE (NEGATIVE); KETONES,URINE (UA) NEGATIVE (NEGATIVE); LEUKOCYTE ESTERASE, URINE NEGATIVE (NEGATIVE); NITRITE,URINE NEGATIVE (NEGATIVE); OCCULT BLOOD,URINE TRACE-INTA (NEGATIVE); PROTEIN,URINE NEGATIVE (NEGATIVE); UROBILINOGEN,URINE 0.2 (NORMAL) E.U./dL (NORMAL)
[2022-01-19 18:44] LABS: CLARITY,URINE CLEAR (CLEAR)
[2022-01-19 19:13] LABS: BACTERIA,URINE None Seen /HPF (None Seen); RBC,URINE 0-5 /HPF (0-5); SQUAMOUS EPITHELIAL CELL,UR NONE SEEN (<= Few); WBC,URINE 0-3 /HPF (0-3)
[2022-01-19 19:16] LABS: CREATININE,URINE 82.3 mg/dL
== END 2022-01-19 11:10 | disposition home or self-care (01) ==
LOC: LAB.N 11:09
PROVIDERS: ATTEND Family Medicine
DX: N17.9 Acute kidney failure, unspecified (principal)
CPT/HCPCS: 81001; 82570; 84156; 84300

== ENCOUNTER 2022-03-04 09:19 | Outpatient (CLI) | payer MEDICARE, OTHER ==
[2022-03-04 13:11] LABS: CALCIUM 9.1 mg/dL (8.5-10.3); CREATININE 2.1 mg/dL (0.6-1.2); POTASSIUM 4.5 mmol/L (3.5-5.0)
== END 2022-03-04 09:20 | disposition home or self-care (01) ==
LOC: LAB.N 09:19
PROVIDERS: ATTEND Physician Assistant Medical
DX: N18.9 Chronic kidney disease, unspecified (principal)
CPT/HCPCS: 36415; 80048

== ENCOUNTER 2022-05-02 08:23 | Outpatient (CLI) | payer MEDICARE, OTHER ==
[2022-05-02 12:44] LABS: CALCIUM 8.9 mg/dL (8.5-10.3); CREATININE 1.8 mg/dL (0.6-1.2); POTASSIUM 3.8 mmol/L (3.5-5.0)
[2022-05-02 13:25] LABS: ESTIMATED AVERAGE GLUCOSE 160 mg/dL (70-100); HEMOGLOBIN A1c% 7.2 % (4.27-6.07)
== END 2022-05-02 08:24 | disposition home or self-care (01) ==
LOC: LAB.N 08:23
PROVIDERS: ATTEND Physician Assistant Medical
DX: E11.9 Type 2 diabetes mellitus without complications (principal)
CPT/HCPCS: 36415; 80048; 83036

== ENCOUNTER 2022-09-26 03:25 | Emergency (ER) | payer MEDICARE, OTHER ==
--- NOTE | 2022-09-26 04:31 | ED Physician Documentation ---
History of Present Illness - Stated complaint Stated Complaint: L THUMB PX - Chief complaint Chief Complaint: Ext Problem - History obtained from History obtained from: Patient - Additonal information Additional information: HPI from patient. Patient c/o gradual onset left thumb pain which has steadily progressed in intensity as well as area involved (pain, swelling). Pain began approximately 2 PM yesterday after yardwork. He denies injury and says he did not undertake unusually strenuous nor repetitive activity that day. He is right hand dominant. Pain is worse with movement of the left thumb, less so the hand and wrist. Pain and swelling has spread to involve the left thenar eminence and lateral aspect of left wrist. Denies fever, numbness, weakness. Review of Systems Constitutional: denies: Fever Skin: reports: Reviewed and negative Musculoskeletal: reports: Extremity pain, Extremity swelling Neurologic: denies: Focal weakness, Numbness PD PAST MEDICAL HISTORY - Past Medical History Cardiovascular: Hypertension, High cholesterol Endocrine/Autoimmune: Type 2 diabetes : Kidney stones Other Past Medical History: kidney disease - Past Surgical History Past Surgical History: Yes Ortho: Knee replacement, Spine surgery HEENT: Tonsil/Adenoidectomy - Present Medications Home Medications: Ambulatory Orders Medication Instructions Recorded Confirmed Lisinopril 20 mg PO DAILY 05/21/13 09/26/22 Metoprolol Succinate [Toprol Xl] 50 mg PO DAILY 05/21/13 09/26/22 Simvastatin 20 mg PO HS 05/21/13 09/26/22 Doxycycline [Vibramycin] 100 mg PO BID #14 tablet 09/26/22 09/26/22 Gabapentin [Neurontin] 300 mg PO TID PRN 09/26/22 09/26/22 Tamsulosin HCl [Flomax] 0.4 mg PO DAILY 09/26/22 09/26/22 glipiZIDE [Glipizide ER] 2.5 mg PO DAILY 09/26/22 09/26/22 oxyCODONE [Roxicodone] 5 - 10 mg PO Q6H PRN #20 tablet 09/26/22 09/26/22 predniSONE [Deltasone] 40 mg PO DAILY 4 Days #8 tablet 09/26/22 09/26/22 - Allergies Allergies/Adverse Reactions: Allergies Allergy/AdvReac Type Severity Reaction Status Date / Time Penicillins Allergy Severe swelling Verified 09/26/22 12:55 - Social History Does the pt smoke?: No Smoking Status: Never smoker Does the pt drink ETOH?: Yes Does the pt have substance abuse?: No - Immunizations Immunizations are current?: Yes - POLST Patient has POLST: No PD ED PE NORMAL - Vitals Vital signs reviewed: Yes - General General: Alert and oriented X 3, Well developed/nourished, Other (appears to be in waxing and waning moderate painful distress during H+P) PD ED PE EXPANDED - Extremities Extremities: Tenderness, Limited ROM, Swelling, Other (swelling, TTP left thumb and left thenar eminance. There is no erythema. The area involved is warmer to touch compared to surrounding area and other thumb/hand. No fluctuance, no abrasion/puncture/laceration. NVI distally (including LTS, brisk cap refil, no firmness to suggest compartment syndrome. ) Results - Vitals Vitals: Oxygen O2 Source Room air - Labs Labs: Laboratory Tests 09/26/22 09/26/22 09/26/22 05:10 05:10 05:10 WBC 11.6 H RBC 4.75 Hgb 14.0 Hct 44.4 MCV 93.5 MCH 29.5 MCHC 31.5 L RDW 13.1 Plt Count 228 MPV 9.6 Neut # (Auto) 8.6 H Lymph # (Auto) 2.1 [place] # (Auto) 0.8 Eos # (Auto) 0.1 Baso # (Auto) 0.0 Absolute Nucleated RBC 0.00 Nucleated RBC % 0.0 ESR 16 Sodium 137 Potassium 4.9 H Chloride 103 Carbon Dioxide 30 Anion Gap 4.0 L BUN 23 H Creatinine 1.8 H Estimated GFR (MDRD) 37 L Glucose 153 H Calcium 9.3 C-Reactive Protein 2.1 PD Medical Decision Making - ED course Complexity details: reviewed results, re-evaluated patient, considered differential, d/w patient ED course: nonerosive osteoarthritic changes of IP, 1st CMC, and radial-carpal joints on plain film xrays. These findings correlate with areas of pain and swelling; no evidence of LEAD REFINER. Blood tests include normal ESR, CRP, and minimal leukocytosis (11.6 WBC), making acute infectious process unlikely (such as osteomyelitis, NSTI). Etiology of patients symptoms not apparent at this time. He is given 1mg IV dilaudid with adequate symptom relief, but recurrence of the discomfort necessitated repeat dosing during ED stay to total of 3mg. He is given 10mg decadron for anti-inflammatory property; gout is within differential diagnosis. NSAIDs would be inappropriate for this patient with 1.8 creatinine (this is comparable to previous results and patient is aware of this, has been told to avoid NSAIDs). Infection seems unlikely given minimal leukocytosis and normal ESR and CRP, but given doxycycline and provided rx for same out of abundance of caution. Also e- prescribed short course of prednisone as well as oxycodone for pain control. Results d/w patient, return precautions carefully reviewed, advised to seek follow up with PMD as soon as can be arranged for reevaluation. Departure - Departure Disposition: 01 Home, Self Care Clinical Impression: Pain in extremity Qualifiers: Extremity pain location: hand Laterality: left Qualified Code(s): M79.642 - Pain in left hand Condition: Good Instructions: ED Acute Pain [facility] Follow-Up: Gisel Elmore PA-C [Primary Care Provider] - Within 3 Days Prescriptions: predniSONE [Deltasone] 40 mg PO DAILY 4 Days #8 tablet oxyCODONE [Roxicodone] 5 - 10 mg PO Q6H PRN #20 tablet PRN Reason: Pain >8 Doxycycline [Vibramycin] 100 mg PO BID #14 tablet Comments: There were no concerning or diagnostic findings on tonight's tests. The cause of your symptoms is not apparent at this time. I have electronically submitted prescriptions for oxycodone (narcotic/opiate pain medication), doxycycline (antibiotic), and prednisone (steroid) to the [facility] pharmacy in [place]. The antibiotic is being prescribed to cover the possibility that there is an infectious cause of your symptoms; this is unlikely, given that you have no fever, that your white blood cell count is minimally elevated, and two other inflammatory markers (blood tests) are normal. Another consideration is gout. You were given a dose of a steroid through the IV while you are in the emergency department, and the prescribed steroid often helps gradually but significantly with the swelling and the pain associate with gout. Follow-up with your primary care provider in the next 2 to 3 days for reevaluation. Further testing and/or referral to a specialist might be indicated. Forms: PCP List Discharge Date/Time: 09/26/22 08:20
[2022-09-26] MEDS ORDERED: HYDROmorphone 1 MG/ML CARPUJECT IVP STA ×3 (04:51→07:50)
[2022-09-26 05:14] LABS: BASOPHILS % (AUTO) 0.3 %; EOSINOPHILS # (AUTO) 0.1 10^3/uL (0.0-0.7); EOSINOPHILS % (AUTO) 0.6 %; HCT - HEMATOCRIT 44.4 % (42.0-52.0); LYMPHOCYTES # (AUTO) 2.1 10^3/uL (1.5-3.5); LYMPHOCYTES % (AUTO) 17.9 %; MEAN CORPUSCULAR HEMOGLOBIN 29.5 pg (27.0-31.0); MEAN CORPUSCULAR HGB CONC 31.5 g/dL (32.0-36.0); MEAN CORPUSCULAR VOLUME 93.5 fL (80.0-94.0); MEAN PLATELET VOLUME 9.6 fL (7.4-11.4); MONOCYTES # (AUTO) 0.8 10^3/uL (0.0-1.0); MONOCYTES % (AUTO) 6.8 %; NEUTROPHILS # (AUTO) 8.6 10^3/uL (1.5-6.6); NEUTROPHILS % (AUTO) 73.5 %; PLT - PLATELET COUNT 228 10^3/uL (130-450); RED BLOOD COUNT 4.75 10^6/uL (4.70-6.10); RED CELL DISTRIBUTION WIDTH 13.1 % (12.0-15.0); WHITE BLOOD COUNT 11.6 x10^3/uL (4.8-10.8)
[2022-09-26 05:30] LABS: CRP - C-REACTIVE PROTEIN 2.1 mg/dL (<0.5)
[2022-09-26 05:35] LABS: CALCIUM 9.3 mg/dL (8.5-10.3); CREATININE 1.8 mg/dL (0.6-1.3); POTASSIUM 4.9 mmol/L (3.5-4.5)
--- NOTE | 2022-09-26 07:29 | XRAY Report ---
PROCEDURE: Hand 3 View LT INDICATIONS: atraumatic left hand pain TECHNIQUE: 4 views of the hand(s) acquired. COMPARISON: None. FINDINGS: Bones: No acute fracture or dislocation. Moderate polyarticular background degenerative changes pred ominantly involving the interphalangeal joints of the left hand. No findings suggest suspicious osseo us erosions. Moderate degenerative changes of the distal radioulnar joint, first carpometacarpal join t, and triscaphe joint. There are also degenerative changes of the metacarpophalangeal joints most pr onounced of the thumb. There are a few juxta-articular subcortical lucencies involving the distal int erphalangeal joints of the second through fifth fingers. Soft tissues: No suspicious soft tissue calcifications or masses. IMPRESSION: No acute fracture or dislocation. Moderate background polyarticular degenerative osteoarthrosis. A few small subcortical juxta-articula r lucencies favored to represent degenerative changes; otherwise, no definite findings of erosive art hropathy at this time. Findings are concordant with preliminary interpretation provided by [facility]. Reviewed by: Tal Duran MD on 09/26/2022 7:28 AM PDT Approved by: Tal Duran MD on 09/26/2022 7:28 AM PDT Station ID: [id number]
[2022-09-26] MEDS ORDERED: DOXYCYCLINE 100 MG TABLET PO STA (07:51)
[2022-09-26] MEDS ORDERED: DEXAMETHASONE 10 MG/ML VIAL IVP STA (07:51)
[2022-09-26 07:55] VITALS: BP 161/87; O2SAT 99
== END 2022-09-26 08:20 | disposition home or self-care (01) ==
LOC: ED 03:25
DX: M79.642 Pain in left hand (principal); R79.89 Other specified abnormal findings of blood chemistry
CPT/HCPCS: 36415; 73130; 80048; 85025; 85651; 86140; 96374; 96375; 96376; 99212; 99284; A9270; G0463; J1170

== ENCOUNTER 2022-09-26 12:24 | Outpatient (CLI) | payer MEDICARE, OTHER ==
--- NOTE | 2022-09-26 13:11 | SLEEP CARE CONSULTATION ---
Information from patient questionnaire entered by Marty Garcia. I have reviewed and concur with the information entered by Marty Garcia. This document represents the service I personally performed and the decisions made by me, Анна James MD, [facility]. History of Present Illness Service Date and Time: 09/26/2022 1224 Previous diagnosis: Very Severe, Obstructive Sleep Apnea-Hypopnea Syndrome AHI: 61.9 (in 2007) Reason for follow up: annual (LAST SEEN 09/2021) Equipment type: CPAP (RESMED SD CARD) Equipment obtained from: [employer] Mask style: Nasal Prior sleep studies: Yes Year and Where: 2007 - [facility] Type of Sleep Study: Polysomnography HPI additional information: Mr. Wesley was diagnosed to have very severe obstructive sleep apnea-hypopnea syndrome and returns today for follow up of CPAP therapy. The patient purchased the device from [employer] and was fitted with a nasal mask. He continues to use the device nightly and all through the night. The compliance report shows that he uses the device 365 nights out of the past 365 nights, averaging 10.5 hours a night. He complains of no particular problem with the device such as soreness on the face, dry nose, epistaxis, nasal congestion or headache. He thinks that the pressure of 10 - 12 cmH2O is comfortable. On the CPAP therapy he notices improvement in his sleep quality, and that he wakes up feeling fresher in the morning and more awake/alert during the day. Booker Sleepiness Scale score is 4. His notices no snore at all. The average residual AHI is 3.2; and average air leak is 3.2 L/minute. The 90th percentile pressure is 11.9 cmH2O. Sleep Study - Results Type of Sleep Study: Polysomnography Prior sleep studies: Yes Year and Where: 2007 - [facility] Subjective Initial Booker Sleepiness Scale score: 3 (in 2007) Current Booker Sleepiness Scale score: 5 (09/26/22) Allergies and Home Medications Drug allergies reviewed: Yes Home medication list reviewed: Yes Allergy and home medication list: Allergies Penicillins Allergy (Severe, Verified 09/23/22 10:31) swelling Review of Systems Review of systems same as previous: Yes Physical Exam Vital signs obtained and entered by: MARTY Ramirez MA Blood Pressure: 148/84 (RIGHT ARM) Cuff size: regular Heart Rate: 66 O2 Saturation: 94 Height: 6 ft 3 in Weight: 280 lb 6.4 oz Body Mass Index: 35.0 BMI Classification: Obese Impression and Plan IMPRESSION: 1. Obstructive Sleep Apnea-Hypopnea Syndrome, very severe, with the patient continuing to do well on nasal CPAP therapy. He has excellent compliance and significant clinical benefits. The current pressure appears effective and comfortable. Overall, he is very satisfied with treatment and plans to continue with it long-term. No adjustment is necessary today. Because the CPAP is now older than the useful life of 5 years, I will order the patient a new one and make it an autoCPAP set between 10 and 12 cmH2O. PLAN: 1. Continue with autoCPAP set at 10 - 12 cm H2O. 2. Try to lose weight 3. Prescription made for an autoCPAP, heated humidifier, and related supplies. 4. Return in one year for follow up or earlier if there is any problem with the treatment. Counseling Topics: Weight control Prescriptions: Auto CPAP Follow up with Sleep Care in: 1 year Visit Type: In Office Time Spent with Patient (minutes): 15 Provider Statement: I spent 100% of the Face to Face Visit with the patient with greater than 50% spent counseling the patient and coordination of care.
[2022-09-26 13:19] VITALS: BP 148/84; O2SAT 94
== END 2022-09-26 12:25 | disposition home or self-care (01) ==
LOC: SC 12:24
PROVIDERS: ATTEND Internal Medicine Pulmonary Disease
DX: G47.33 Obstructive sleep apnea (adult) (pediatric) (principal); E66.9 Obesity, unspecified; Z68.35 Body mass index [BMI] 35.0-35.9, adult
CPT/HCPCS: 99212

== ENCOUNTER 2022-12-19 07:34 | Outpatient (CLI) | payer MEDICARE, OTHER ==
[2022-12-19 12:53] LABS: ESTIMATED AVERAGE GLUCOSE 166 mg/dL (70-100); HEMOGLOBIN A1c% 7.4 % (4.27-6.07)
[2022-12-19 12:58] LABS: CALCIUM 9.4 mg/dL (8.5-10.3); CREATININE 1.8 mg/dL (0.6-1.3); POTASSIUM 4.5 mmol/L (3.5-4.5); URIC ACID 7.4 mg/dL (4.4-7.6)
[2022-12-19 13:36] LABS: CALCIUM 9.4 mg/dL (8.5-10.3); CREATININE 1.9 mg/dL (0.6-1.3); POTASSIUM 4.5 mmol/L (3.5-4.5)
== END 2022-12-19 07:35 | disposition home or self-care (01) ==
LOC: LAB.N 07:34
PROVIDERS: ATTEND Nurse Practitioner
DX: E11.9 Type 2 diabetes mellitus without complications (principal); M79.645 Pain in left finger(s)
CPT/HCPCS: 36415; 80048; 83036; 84550

== ENCOUNTER 2023-04-18 08:37 | Outpatient (CLI) | payer MEDICARE, OTHER ==
[2023-04-18 12:55] LABS: ESTIMATED AVERAGE GLUCOSE 143 mg/dL (70-100); HEMOGLOBIN A1c% 6.6 % (4.27-6.07)
[2023-04-18 14:19] LABS: ALBUMIN 4.2 g/dL (3.2-5.5); ALBUMIN/GLOBULIN RATIO 1.3 (1.0-2.2); ALKALINE PHOSPHATASE 74 IU/L (42-121); ALT ALANINE AMINOTRANSFERASE 11 IU/L (10-60); AST ASPARTATE AMINOTRANSFERASE 18 IU/L (10-42); BILIRUBIN,TOTAL 0.7 mg/dL (0.2-1.0); BUN - BLOOD UREA NITROGEN 21 mg/dL (6-20); CALCIUM 9.6 mg/dL (8.5-10.3); CARBON DIOXIDE - CO2 30 mmol/L (21-32); CHLORIDE 103 mmol/L (101-111); CHOL/HDL RATIO 3.6 (<5.0); CHOLESTEROL 123 mg/dL; CREATININE 1.7 mg/dL (0.6-1.3); GFR - MDRD 39 (>89); GLUCOSE 104 mg/dL (74-104); HDL CHOLESTEROL 34 mg/dL; LDL CHOLESTEROL,CALCULATED 52 mg/dL; LDL/HDL RATIO 1.5 (<3.6); POTASSIUM 4.5 mmol/L (3.5-4.5); SODIUM 139 mmol/L (135-145); TOTAL PROTEIN 7.5 g/dL (6.4-8.9); TRIGLYCERIDES 183 mg/dL (48-352); VLDL CHOLESTEROL 37 mg/dL
== END 2023-04-18 08:38 | disposition home or self-care (01) ==
LOC: LAB.N 08:37
PROVIDERS: ATTEND Physician Assistant Medical
DX: E11.9 Type 2 diabetes mellitus without complications (principal)
CPT/HCPCS: 36415; 80053; 80061; 83036; 83721

== ENCOUNTER 2023-08-01 05:55 | Emergency (ER) | payer MEDICARE, OTHER ==
[2023-08-01 06:26] LABS: BASOPHILS % (AUTO) 0.4 %; EOSINOPHILS % (AUTO) 0.5 %; HCT - HEMATOCRIT 44.6 % (42.0-52.0); HGB - HEMOGLOBIN 13.9 g/dL (14.0-18.0); LYMPHOCYTES # (AUTO) 2.4 10^3/uL (1.5-3.5); LYMPHOCYTES % (AUTO) 28.5 %; MEAN CORPUSCULAR HEMOGLOBIN 28.8 pg (27.0-31.0); MEAN CORPUSCULAR HGB CONC 31.2 g/dL (32.0-36.0); MEAN CORPUSCULAR VOLUME 92.3 fL (80.0-94.0); MEAN PLATELET VOLUME 9.7 fL (7.4-11.4); MONOCYTES # (AUTO) 0.5 10^3/uL (0.0-1.0); MONOCYTES % (AUTO) 6.4 %; NEUTROPHILS # (AUTO) 5.4 10^3/uL (1.5-6.6); NEUTROPHILS % (AUTO) 63.5 %; PLT - PLATELET COUNT 190 10^3/uL (130-450); RED BLOOD COUNT 4.83 10^6/uL (4.70-6.10); RED CELL DISTRIBUTION WIDTH 14.1 % (12.0-15.0); WHITE BLOOD COUNT 8.5 x10^3/uL (4.8-10.8)
[2023-08-01] MEDS ORDERED: KETOROLAC 30 MG/ML VIAL ONE (06:26)
[2023-08-01] MEDS: ONDANSETRON 4 MG/2 ML VIAL IVP STA (06:26)
[2023-08-01] MEDS ORDERED: ONDANSETRON 4 MG/2 ML VIAL ONE (06:26)
[2023-08-01] MEDS: SODIUM CHLORIDE 0.9% 1,000 ML IV STA ×2 (06:26→07:48)
[2023-08-01] MEDS: HYDROmorphone 1 MG/ML CARPUJECT IVP STA (06:27)
[2023-08-01] MEDS: KETOROLAC 15 MG/ML VIAL IVP STA (06:27)
[2023-08-01 06:48] LABS: ALBUMIN 4.1 g/dL (3.2-5.5); ALBUMIN/GLOBULIN RATIO 2.1 (1.0-2.2); BILIRUBIN,TOTAL 0.6 mg/dL (0.2-1.0); CALCIUM 9.1 mg/dL (8.5-10.3); CREATININE 2.2 mg/dL (0.6-1.3); POTASSIUM 4.5 mmol/L (3.5-4.5); TOTAL PROTEIN 6.1 g/dL (6.4-8.9)
--- NOTE | 2023-08-01 07:07 | ED Physician Documentation ---
PD HPI ABD PAIN - Stated complaint Stated Complaint: ABD PX - Chief complaint Chief Complaint: General - History obtained from History obtained from: Patient - History of Present Illness Timing - onset: How many hours ago (3), Today Timing - duration: Hours (3) Timing - details: Abrupt onset, Still present Quality: Aching, Sharp, Pain Location: RLQ Radiation: Right flank Associated symptoms: Nausea, Vomiting. No: Fever, Diarrhea, Constipation, Dysur ia Similar symptoms before: Diagnosis (kidney stones twice in the past, years ago, and required retrieval/stenting to pass.) Recently seen: Not recently seen Review of Systems Constitutional: denies: Fever, Chills PD PAST MEDICAL HISTORY - Past Medical History Past Medical History: Yes Cardiovascular: Hypertension, High cholesterol Endocrine/Autoimmune: Type 2 diabetes : Kidney stones (remote twice in the past, required retrieval stenting both times. ) - Past Surgical History Past Surgical History: Yes Ortho: Knee replacement, Spine surgery HEENT: Tonsil/Adenoidectomy - Present Medications Home Medications: Ambulatory Orders Medication Instructions Recorded Confirmed Lisinopril 20 mg PO DAILY 05/21/13 09/26/22 Metoprolol Succinate [Toprol Xl] 50 mg PO DAILY 05/21/13 09/26/22 Simvastatin 20 mg PO HS 05/21/13 09/26/22 Doxycycline [Vibramycin] 100 mg PO BID #14 tablet 09/26/22 09/26/22 Gabapentin [Neurontin] 300 mg PO TID PRN 09/26/22 09/26/22 Tamsulosin HCl [Flomax] 0.4 mg PO DAILY 09/26/22 09/26/22 glipiZIDE [Glipizide ER] 2.5 mg PO DAILY 09/26/22 09/26/22 oxyCODONE [Roxicodone] 5 - 10 mg PO Q6H PRN #20 tablet 09/26/22 09/26/22 predniSONE [Deltasone] 40 mg PO DAILY 4 Days #8 tablet 09/26/22 09/26/22 - Allergies Allergies/Adverse Reactions: Allergies Allergy/AdvReac Type Severity Reaction Status Date / Time Penicillins Allergy Severe swelling Verified 08/01/23 06:07 - Social History Does the pt smoke?: No Smoking Status: Never smoker Does the pt drink ETOH?: Yes Does the pt have substance abuse?: No - Immunizations Immunizations are current?: Yes - POLST Patient has POLST: No PD ED PE NORMAL - Vitals Vital signs reviewed: Yes - General General: Alert and oriented X 3, No acute distress, Well developed/nourished - Cardiac Cardiac: RRR, No murmur - Respiratory Respiratory: No respiratory distress, Clear bilaterally - Abdomen Abdomen: Normal bowel sounds, Soft, Non distended, Other (mild tender without guarding nor percussion tender right lower abd on initial exam. ) - Back Back: Other (right CVA tender to percussion. ) - Derm Derm: Normal color, Warm and dry, No rash - Neuro Neuro: Alert and oriented X 3, No motor deficit, Normal speech Results - Vitals Vitals: Oxygen O2 Source Room air - Labs Labs: Laboratory Tests 08/01/23 08/01/23 08/01/23 06:20 06:20 08:00 WBC 8.5 RBC 4.83 Hgb 13.9 L Hct 44.6 MCV 92.3 MCH 28.8 MCHC 31.2 L RDW 14.1 Plt Count 190 MPV 9.7 Neut # (Auto) 5.4 Lymph # (Auto) 2.4 [place] # (Auto) 0.5 Eos # (Auto) 0.0 Baso # (Auto) 0.0 Absolute Nucleated RBC 0.00 Nucleated RBC % 0.0 Sodium 139 Potassium 4.5 Chloride 106 Carbon Dioxide 28 Anion Gap 5.0 L BUN 26 H Creatinine 2.2 H Estimated GFR (MDRD) 29 L Glucose 223 H Calcium 9.1 Total Bilirubin 0.6 AST 29 ALT 14 Alkaline Phosphatase 80 Total Protein 6.1 L Albumin 4.1 Globulin 2.0 L Albumin/Globulin Ratio 2.1 Lipase 99 H Urine Color YELLOW Urine Clarity HAZY Urine pH 5.5 Ur Specific [place] 1.015 Urine Protein NEGATIVE Urine Glucose (UA) NEGATIVE Urine Ketones NEGATIVE Urine Occult Blood LARGE H Urine Nitrite NEGATIVE Urine Bilirubin NEGATIVE Urine Urobilinogen 0.2 (NORMAL) Ur Leukocyte Esterase NEGATIVE Urine RBC TNTC H Urine WBC 4-5 Ur Squamous Epith Cells NONE SEEN Urine Bacteria Rare Ur Microscopic Review INDICATED Urine Culture Comments NOT INDICATED - Rads (name of study) abd/pelvic CT Relevant Findings:: Prelim report reviewed, EMP independent interpretation of test (Small 2-3 mm stone in the bladdder with some mild right hydroureter/nephrosis. Noted made of renal cysts and some left renal atrophy. ) PD Medical Decision Making - ED course Complexity details: reviewed results (few hours of right renal stone with hydr oneprosis. Renal function is slightly higher than baseline, with most recent 1.8 and today 2.2. UA without infection. CT showing stone had passed by time of imaging. ), re-evaluated patient (pain considerably improved with IV pain meds of dilaudid, toradol, and also Zofran for nausea. Pain down to mild aching. ), considered differential (barupt flank to abd pain on right similar though more severe than prior kidney stones, which were years ago. ), d/w patient Departure - Departure Disposition: 01 Home, Self Care Clinical Impression: Right sided abdominal pain, Ureterolithiasis Condition: Stable Record reviewed to determine appropriate education?: Yes Instructions: ED Stone Renal Passed Comments: You did have a 3 mm stone in the ureter on the right causing your pain. It appears to have passed into the bladder at this point and so is present and visible in the bladder. Coming from the bladder out is much easier and usually does not hurt at all and will come out with a subsequent urine. There was mild amount of residual swelling of the right ureter and that should decrease in the next day or 2. There can still be some pains and aches in the flank and abdomen for a couple of days. Tylenol 500 to 650 mg 4 times daily. As needed. Stay well-hydrated. Continue usual medicines. Your kidney function today was comparable to usual. The creatinine was 2.2 and your most recent was 1.8. In general you have trended between 1.7 and 2.1 over the last 2 years. I do not see any particular reason to notify Dr. Bruce per se. Forms: PCP List Discharge Date/Time: 08/01/23 09:18
[2023-08-01 08:09] LABS: BILIRUBIN,URINE NEGATIVE (NEGATIVE); GLUCOSE, URINE (UA) NEGATIVE (NEGATIVE); KETONES,URINE (UA) NEGATIVE (NEGATIVE); LEUKOCYTE ESTERASE, URINE NEGATIVE (NEGATIVE); NITRITE,URINE NEGATIVE (NEGATIVE); OCCULT BLOOD,URINE LARGE (NEGATIVE); PH,URINE 5.5 PH (5.0-7.5); PROTEIN,URINE NEGATIVE (NEGATIVE); UROBILINOGEN,URINE 0.2 (NORMAL) E.U./dL (NORMAL)
[2023-08-01 08:11] LABS: CLARITY,URINE HAZY (CLEAR)
[2023-08-01 08:15] VITALS: BP 164/73; O2SAT 98
[2023-08-01 08:21] LABS: BACTERIA,URINE Rare /HPF (None Seen); RBC,URINE TNTC /HPF (0-5); SQUAMOUS EPITHELIAL CELL,UR NONE SEEN (<= Few)
--- NOTE | 2023-08-01 08:35 | CT Report ---
PROCEDURE: Abdomen/Pelvis WO INDICATIONS: right flank to abd pain at 3am TECHNIQUE: A CT scan of the abdomen and pelvis was performed without the use of intravenous contrast. Images we re recorded and evaluated at appropriate window settings. Reformats: coronal and sagittal. For radiat ion dose reduction, the following was used: automated exposure control, adjustment of mA and/or kV ac cording to patient size. COMPARISON: None. FINDINGS: Image quality: Diagnostic. Lower chest: Bibasilar scarring/atelectasis is seen. Heart size is normal, no pericardial effusion. Liver: No contour-deforming mass. Gallbladder: No radiopaque stones or wall thickening. Biliary tree: No intrahepatic or extrahepatic dilation, accounting for age. Spleen: No splenomegaly. Pancreas: No pancreatic ductal dilation. Adrenals: No adrenal nodule. Kidneys and ureters: Atrophic appearing left kidney. Well-circumscribed hypodensities are seen scatte red in bilateral kidneys measures up to 7.6 x 7.2 cm in size in midpole of right kidney and measures 17 Hounsfield unit in density, likely represent hepatic cysts. There is right perinephric fat strandi ng. Right periureteral fat stranding is also seen. No significant hydronephrosis. There is suggestion of mild right hydroureter extending to the level of right UVJ. No left-sided hydronephrosis or hydro ureter. Stomach, bowel and peritoneum: There is no bowel obstruction or abnormal bowel wall thickening. No me senteric fat stranding. Appendix is visualized in right lower quadrant abdomen and is within normal l imits. Extensive sigmoid diverticulosis is seen without sigmoid colon wall thickening or mesenteric f at stranding. No abscess collection. No free fluid of free air. Lymph nodes: No central or retroperitoneal adenopathy. Vessels: No infrarenal aortic aneurysm. Reproductive organs: Unremarkable. Bladder: Bladder wall thickness is normal, accounting for underdistention. There is a tiny 2 mm stone seen in dependent portion of urinary bladder. Pelvic lymph nodes: No adenopathy by size criteria. Bones: No aggressive osseous abnormality. Postsurgical changes are noted in lower lumbar spine at L4- S1 levels. No acute vertebral body compression fracture. Other: No significant ventral or inguinal hernia. IMPRESSION: 1. Finding is suggestive of a passed 2 mm right-sided renal stone with residual mild right hydrourete r. Mild right perinephric and periureteral fat stranding is also seen. 2. Atrophic left kidney. Suggestion of simple appearing bilateral renal cysts. No left-sided hydronep hrosis or hydroureter. Normal-appearing urinary bladder. 3. Normal appendix. No bowel obstruction or abnormal bowel wall thickening. Sigmoid diverticulosis wi thout CT evidence of acute diverticulitis. No free fluid of free air. Reviewed by: Abhay Angeles MD on 08/01/2023 8:34 AM PDT Approved by: Abhay Angeles MD on 08/01/2023 8:34 AM PDT Station ID: [id number]
== END 2023-08-01 09:18 | disposition home or self-care (01) ==
LOC: ED 05:55
DX: N20.1 Calculus of ureter (principal); N13.4 Hydroureter; Z87.442 Personal history of urinary calculi
CPT/HCPCS: 36415; 74176; 80053; 81001; 83690; 85025; 99284; J1170; 81003; 87086

== ENCOUNTER 2023-08-21 08:03 | Outpatient (CLI) | payer MEDICARE, OTHER ==
[2023-08-21 12:05] LABS: CALCIUM 9.8 mg/dL (8.5-10.3); CREATININE 1.8 mg/dL (0.6-1.3); POTASSIUM 4.6 mmol/L (3.5-4.5)
[2023-08-21 13:32] LABS: ESTIMATED AVERAGE GLUCOSE 169 mg/dL (70-100); HEMOGLOBIN A1c% 7.5 % (4.27-6.07)
== END 2023-08-21 08:04 | disposition home or self-care (01) ==
LOC: LAB.N 08:03
PROVIDERS: ATTEND Physician Assistant Medical
DX: E11.9 Type 2 diabetes mellitus without complications (principal)
CPT/HCPCS: 36415; 80048; 83036

== ENCOUNTER 2023-10-02 09:09 | Outpatient (CLI) | payer MEDICARE, OTHER ==
--- NOTE | 2023-10-02 10:04 | SLEEP CARE CONSULTATION ---
Information from patient questionnaire entered by Marty Garcia. I have reviewed and concur with the information entered by Marty Garcia. This document represents the service I personally performed and the decisions made by me, Анна James MD, [facility]. History of Present Illness Service Date and Time: 10/02/2023 0909 Previous diagnosis: Very Severe, Obstructive Sleep Apnea-Hypopnea Syndrome AHI: 61.9 (in 2007) Reason for follow up: annual (LAST SEEN 09/2022) Equipment type: CPAP (RESMED SD CARD) Equipment obtained from: [employer] Mask style: Nasal Prior sleep studies: Yes Year and Where: 2007 - [facility] Sleep Type of Sleep Study: Polysomnography HPI additional information: Mr. Wesley was diagnosed to have very severe obstructive sleep apnea-hypopnea syndrome and returns today for follow up of CPAP therapy. The patient recently acquired a new device from [employer]. and was fitted with a nasal mask. He continues to use his new [employer]Med AirSense 10 nightly and all through the night. The compliance report shows that he uses the device 140 nights out of the past 140 nights, averaging 10.5 hours a night. He complains of no particular problem with the device such as soreness on the face, dry nose, epistaxis, nasal congestion or headache. He thinks that the pressure of 10 - 15 cmH2O is comfortable. On the CPAP therapy he notices improvement in his sleep quality, and that he wakes up feeling fresher in the morning and more awake/alert during the day. [place] Sleepiness Scale score is 0. His notices no snore at all. The average residual AHI is 4.5; and average air leak is 2 L/minute. The 90th percentile pressure is 12.9 cmH2O. Sleep Study - Results Type of Sleep Study: Polysomnography Prior sleep studies: Yes Year and Where: 2007 - [facility] Sleep CPAP Compliance Data - Data Reviewed with Patient Average duration of nightly device use: 10HRS 29MINS Compliance rate %: 38 (10/02/22-10/01/23) Current pressure setting (cmH2O): 10-15 Average residual AHI: 4.5 Subjective Patient concerns: reports: nasal congestion Current pressure setting perceived as: comfortable Initial [place] Sleepiness Scale score: 3 (in 2007) Current [place] Sleepiness Scale score: 0 (10/02/23) Allergies and Home Medications Drug allergies reviewed: Yes Home medication list reviewed: Yes Allergy and home medication list: Allergies Penicillins Allergy (Severe, Verified 10/02/23 09:11) swelling Review of Systems Review of systems same as previous: Yes (NO CHANGE) Physical Exam Vital signs obtained and entered by: MARTY Ramirez MA Blood Pressure: 156/80 (LEFT ARM) Cuff size: long Heart Rate: 60 O2 Saturation: 96 Height: 6 ft 3 in Weight: 289 lb 9.6 oz Body Mass Index: 36.1 BMI Classification: Obese Impression and Plan IMPRESSION: 1. Obstructive Sleep Apnea-Hypopnea Syndrome, very severe, with the patient continuing to do well on nasal CPAP therapy. He has excellent compliance and significant clinical benefits. The current pressure appears effective and comfortable. Overall, he is very satisfied with treatment and plans to continue with it long-term. No adjustment is necessary today. Gama prajapati, he is unhappy to learn that the machine he has is ResMed AirSense 10, and not 11 as prescribed. I printed the prescription that we sent to [facility] [place]. last year which clearly specified an AirSense 11. PLAN: 1. Continue with autoCPAP set at 10 - 15 cm H2O. 2. Try to lose weight 3. The patient will contact [employer]. to see if he can exchange his ResMed AirSense 10 with an 11. 4. Return in one year for follow up or earlier if there is any problem with the treatment. Counseling Topics: Weight control Follow up with Sleep Care in: 1 year Visit Type: In Office Time Spent with Patient (minutes): 15 Provider Statement: I spent 100% of the Face to Face Visit with the patient with greater than 50% spent counseling the patient and coordination of care.
[2023-10-02 10:12] VITALS: BP 156/80; O2SAT 96
== END 2023-10-02 09:10 | disposition home or self-care (01) ==
LOC: SC 09:09
PROVIDERS: ATTEND Internal Medicine Pulmonary Disease
DX: G47.33 Obstructive sleep apnea (adult) (pediatric) (principal); E66.9 Obesity, unspecified; Z68.36 Body mass index [BMI] 36.0-36.9, adult
CPT/HCPCS: 99212; G0463

== ENCOUNTER 2024-11-27 08:47 | Observation (INO) ==
--- NOTE | 2024-11-27 09:31 | ED Physician Documentation ---
PD HPI MALE Stated complaint Stated Complaint: IRREGULAR LABS Chief complaint Chief Complaint: General History obtained from History obtained from: Patient and Other (Urologist) History of Present Illness Timing - onset: How many days ago (2) Timing - duration: Days (2) Associated symptoms: No Dysuria Recently seen: Clinic (The patient had been seen 2 days ago here in the emergency department and diagnosed with a right kidney stone of 4 mm size with only mild or moderate hydronephrosis. It was in the proximal ureter. The patient does have a history of mild to moderate renal insufficiency. ) Additional information Additional information: Patient with a baseline history of some renal insufficiency and had some elevation of his creatinine compared to baseline 2 days ago in the ER. It was rechecked by urology this morning and showed a significant increase to 7.6. His potassium was good. Referred to the ER for evaluation and preparation for stent placement in the OR later this morning. He has been using Tylenol and pain medication of opiate for his pain. He has not been using any NSAIDs. Meds/Allgy Home Medications Ambulatory Orders Medication Instructions Recorded Confirmed acetaminophen 325 mg tablet 325 - 650 mg PO QID PRN pa in 12/26/23 11/27/24 fluticasone propionate 50 1 spray intranasal BID 12/2511/27/24 mcg/actuation nasal spray,suspension gabapentin 300 mg capsule 300 mg PO Q8H PRN pain 12/2511/27/24 Permanent Disabled Placard 12/27/23 11/26/24 blood-glucose meter (Freestyle 12/27/23 11/26/24 [employer] meter) diclofenac sodium 1 % topical gel 2 - 4 g topical QID PRN pain #100 12/27/23 11/27/24 grams lisinopril 20 mg tablet 20 mg PO DAILY #90 tabs 02/06/1411/27/24 metoprolol succinate 50 mg 50 mg PO DAILY #90 tabs 06/1411/27/24 tablet,extended release 24 hr tamsulosin 0.4 mg capsule (Flomax) 0.4 mg PO DAILY #90 caps 03/26/24 11/27/24 glipizide 2.5 mg tablet, extended 2.5 mg PO DAILY #90 tabs 06/26/24 11/27/24 release 24 hr simvastatin 20 mg tablet 20 mg PO HS #90 tabs 09/17/2 5 11/27/24 blood sugar diagnostic (FreeStyle #100 ea 10/30/2409/13 Test strips) lancets 28 gauge (Super Thin #100 ea 10/30/24 11/26/24 Lancets) tirzepatide 5 mg/0.5 mL 5 mg (0.5 mL) subcut QWEEK # 2 mL 10/30/24 11/27/24 subcutaneous pen injector ondansetron HCl 4 mg tablet 4 mg PO Q8H PRN nausea and 11/25/24 11/27/24 vomiting #20 tabs oxycodone 5 mg tablet 5 mg PO QID PRN pain #20 tab s 11/25/24 11/27/24 lidocaine 5 % topical patch 3 patch topical DAILY PRN pain 11/27/24 11/27/24 (Lidoderm) loratadine 10 mg tablet (Claritin) 10 mg PO DAILY PRN allergy symptoms 11/27/24 11/27/24 Allergies Allergies Allergy/AdvReac Type Severity Reaction Status Date / Time Penicillins Allergy Severe swelling Verified 11/27/24 09:12 atorvastatin (From Lipitor) Allergy Rash Verified 11/27/24 09:12 cefuroxime (From Ceftin) AdvReac diarrhea, Verified 11/27/24 09:12 nausea ibuprofen AdvReac kidney Verified 11/27/24 09:12 disease PFSH Active Problems All Active Problems (Updated 11/27/24 @ 15:02 by Meena Singh) Hyperkalemia (Acute) Acute unilateral obstructive uropathy (Acute) KATHLEEN (acute kidney injury) (Acute) Kidney cysts (Acute) Ureterolithiasis (Acute) Acute right flank pain (Acute) B12 deficiency (Acute) Hypertension, essential, benign (Chronic) Hyperlipidemia (Chronic) GERD (gastroesophageal reflux disease) (Chronic) Sleep apnea (Chronic) Diabetes mellitus type 2, controlled, without complications (Chronic) Peripheral neuropathy (Chronic) BPH (benign prostatic hyperplasia) (Chronic) Chronic renal insufficiency (Chronic) Allergic rhinitis (Chronic) Screening for malignant neoplasm of prostate (Chronic) Medical History Medical History (Updated 11/27/24 @ 15:02 by Meena Singh) Arthritis Bilateral hands Kidney stones Lumbar degenerative disc disease Psoriasis Surgical History Surgical History History of lumbar laminectomy History of tonsillectomy History of total right knee replacement (TKR) Family History Family History (Updated 12/26/23 @ 17:14 by Sherri Davis RN) Father No problems noted. Social History Social History (Updated 11/27/24 @ 14:53 by Meena Singh) Smoking Status: Former smoker If you are a former smoker, when did you quit? (Date/Year): Pipe smoking > 30 years ago, no longer smokes tobacco Second hand tobacco smoke exposure: No Do you dip or chew tobacco?: No Do you vape?: No Patient requests smoking cessation consult: No Initiate information on smoking cessation: No Living arrangement: At home Marital Status: Living Condition: With spouse/s.o. Support Person: Yes Relationship Notes: Four children Living Situation Details: Lives in a rambler with , has one small step to get into home DPOA / Health Care Directive - Additional Notes: , Cherelle would be the person to make healthcare decisions in the event he is unable to make them himself Physical Activity: Walking Level: Independent Do you feel safe in your home environment?: Yes History of physical, verbal, emotional, or financial abuse?: No ETOH Use: Wine, Beer, Liquor and Other Frequency: Daily ETOH - Additional Notes: 1-2 martinis daily, 1-2 glasses of wine or 1-2 beers 3-4x weekly Substance Use: denies use 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, 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 [employer] 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: Yes Service: Yes Dates of Service: 20 years of service POLST Patient has POLST: No Exam Exam Vital Signs: Vital Signs x48h Pulse Resp BP Pulse Ox 11/27/24 11:40 62 18 181/125 H 97 11/27/24 11:25 59 L 16 185/96 H 96 11/27/24 11:10 60 18 187/99 H 99 11/27/24 10:55 59 L 18 189/108 H 100 11/27/24 10:50 59 L 18 190/107 H 96 11/27/24 10:45 57 L 18 192/99 H 94 11/27/24 10:30 61 18 183/100 H 97 Constitutional normal general appearance, no apparent distress and average body habitus Respiratory normal respiratory effort and clear to auscultation bilaterally Cardiovascular regular rhythm noted and no edema Gastrointestinal abdomen soft to palpation and nontender to palpation Genitourinary no CVA tenderness Neurology speech normal Psychiatry mental status grossly normal, thought process normal, cooperative and affect normal Results Vitals Vitals: Vital Signs - 24 hr 11/27/24 09:12 11/27/24 09:42 11/27/24 10:30 Temperature 37 C Temperature Source Temporal Artery Scan Pulse Rate 60 68 61 Respiratory Rate 18 18 18 Blood Pressure 173/92 H 179/90 H 183/100 H O2 Saturation 98 95 97 O2 Source Room air Room air Room air Pain Intensity 4 4 4 11/27/24 10:45 11/27/24 10:50 11/27/24 10:55 Temperature Temperature Source Pulse Rate 57 L 59 L 59 L Respiratory Rate 18 18 18 Blood Pressure 192/99 H 190/107 H 189/108 H O2 Saturation 94 96 100 O2 Source Room air Room air Room air Pain Intensity 4 11/27/24 11:10 11/27/24 11:25 11/27/24 11:40 Temperature Temperature Source Pulse Rate 60 59 L 62 Respiratory Rate 18 16 18 Blood Pressure 187/99 H 185/96 H 181/125 H O2 Saturation 99 96 97 O2 Source Room air Room air Room air Pain Intensity 0 11/27/24 11:46 Temperature Temperature Source Pulse Rate Respiratory Rate Blood Pressure O2 Saturation O2 Source Pain Intensity 5 Oxygen O2 Source Room air Labs Labs: Laboratory Tests 11/27/24 10:00 WBC 11.7 H RBC 4.79 Hgb 14.1 Hct 44.9 MCV 93.7 MCH 29.4 MCHC 31.4 L RDW 13.9 Plt Count 203 MPV 10.0 Neut # (Auto) 8.9 H Lymph # (Auto) 1.6 [place] # (Auto) 1.0 Eos # (Auto) 0.0 Baso # (Auto) 0.0 Absolute Nucleated RBC 0.00 Nucleated RBC % 0.0 Sodium 136 Potassium 5.4 H Chloride 104 Carbon Dioxide 23 Anion Gap 9.0 BUN 65 H Creatinine 7.9 H* Estimated GFR (MDRD) 7 L Glucose 94 Calcium 8.7 Magnesium 2.3 Total Bilirubin 1.0 AST 16 ALT 9 L Alkaline Phosphatase 63 Total Protein 7.1 Albumin 4.1 Globulin 3.0 Albumin/Globulin Ratio 1.4 Lipase 56 PD Medical Decision Making ED course Complexity details: reviewed results, considered differential and d/w patient ED course: Patient has a history of some renal insufficiency over the past few years. He sees Dr. Pate or Donis in [facility] I believe as nephrology. He had a kidney stone couple of days ago that was seen on CT scan with small size at 4 mm with mild hydronephrosis. Kidney function at that time was mildly elevated above baseline. He had follow-up labs done yesterday and this morning which showed an elevated creatinine significantly to 7.6. Presume from obstructive uropathy. He states the pain medicine of Tylenol and opiate have been effective. He has not been taking any NSAIDs. Dr. Norberto Figueroa is planning to place a stent for the patient around noon. He is here in the ER to be evaluated and initial treatment prior to that. The patient had not taken his medications this morning which include beta- dl and lisinopril. His blood pressure was fairly elevated and I did give him some IV medications since he wanted to be n.p.o. in preparation for surgery. Recheck of his chemistry panel here in the ER showed his creatinine to be even slightly more elevated at 7.9. Potassium was slightly more elevated at 5.4. I believe the solution to his problems, as does the urologist, is to have the flow around stone improved with the stent. That is planned within the next couple of hours. His potassium was a bit elevated above normal but not high enough to need intervention per se. Discharge Plan Discharge Patient Disposition: ED Transfer to [facility] Condition: Stable Clinical Impression: Ureterolithiasis, KATHLEEN (acute kidney injury), Acute unilateral obstructive uropathy Interventions: ED Admission Assessment Last Done: 11/27/24 12:21 Vitals documented within 30 minutes of discharge?: Yes
--- OUTSIDE RECORDS SUMMARY | 2024-11-27 09:38 | EXTERNAL MEDICAL SUMMARY RPT | Continuity of Care Document ---
Author Organization [place] Address [address] [place] [id number] Phone Problems date description facility 2024-10-02 06:30 Obstructive sleep apnea (adult) [facility] 2024-10-23 00:05 Type 2 diabetes mellitus withou t complications [facility] 2024-10-30 12:51 Type 2 diabetes mellitus with h yperglycemia [facility] 2024-10-30 12:51 Type 2 diabetes mellitus withou t complications [facility] 2024-10-30 12:51 Deficiency of other specified B group vitamins [facility] 2024-10-30 12:51 Hyperlipidemia, unspecified [facility] 2024-10-30 12:51 Essential (primary) hypertensio n [facility] 2024-10-30 12:51 Chronic kidney disease, unspeci fied [facility] 2024-10-30 12:51 Encounter for screen ing for malignant neoplasm of prostate [facility] 2024-11-25 07:03 [facility] 2024-11-25 07:19 [facility] 2024-11-26 15:14 [facility] 2024-11-26 15:39 [facility] 2024-11-27 09:12 [facility] 2024-11-27 09:12 [facility] 2024-11-27 09:21 [facility] Results/Labs test date facility value unit notes Result panel 1 CREATININE 2024-10-22 09:26 [facility] 1.8 mg/dl As of August 2022 testing method has changed, this may include reference ranges. CHLORIDE 2024-10-22 09:26 [facility] 103 mmol/l As of August 2022 testing method has changed, this may include reference ranges. GLUCOSE 2024-10-22: [facility] 123 mg/dl As of August 2022 testing method has changed, this may include reference ranges. SODIUM 2024-10-22: [facility] 138 mmol/l (missing) ESTIMATED AVERAGE GLUCOSE 2024-10-22: [facility] 148 mg/dl (missing) BUN - BLOOD UREA NITROGEN 2024-10-22: [facility] 20 mg/dl As of Aug testing method has changed, this may include reference ranges. CARBON DIOXIDE - CO2 2024-10-22: [facility] 31 mmol/l As of Aug testing method has changed, this may include reference ranges. GFR - MDRD 2024-10-22: [facility] 37 (mara carter) The IDMS-traceable MDRD Study Equation has been validated extensively in and populations between the ages of 18 and 70 with impaired kidney function (eGFR < 60 mL/min/1.73m2) and has shown good performance for patients with all common causes of kidney disease. Although this equation has not been validated for patients older than 70, an MDRD-derived eGFR may still be a useful tool for providers caring for patients older than 70. References: http://www.nkdep.nih .gov/lab-evaluation/ gfr/creatinine-stand ardization, last updated April 2011. ANION GAP 2024-10-22: [facility] 4.0 (missing ) (missing) POTASSIUM 2024-10-22: [facility] 4.4 mmol/l As of August 2022 testing method has changed, this may include reference ranges. HEMOGLOBIN A1c% 2024-10-22: [employer] 6.8 % The [place] [employer] (ADA) has made the following recommendations: Monitoring HbA1c in Diabetic Patients: A1c (NGSP%) Goal <8 Less Stringent Goal <7 General Goal <6.5 More Stringent Goal Diagnosis of Diabetes: A1c (NGSP%) Goal >6.5 Diabetic 5.7-6.4 Pre-Diabetic <5.7 Non-Diabetic CALCIUM 2024-10-22: [facility] 8.9 mg/dl As of August 2022 testing method has changed, this may include reference ranges. Result panel 2 NUCLEATED RED BLOOD CELLS AUTO 2024-11-25 05:35 [facility] 0.0 /100wbc (missing) BASOPHILS # (AUTO) 2024-11-25 05:35 [facility] 0.0 10 3/ul (missing) NRBC ABSOLUTE COUNT (AUTO) 2024-11-25 05:35 [employer] 0.00 x10 3/ul (missing) EOSINOPHILS # (AUTO) 2024-11-25 05:35 [employer] 0.1 10 3/ul (missing) UROBILINOGEN,URINE 2024-11-25 05:35 [facility] 0.2 (NORMAL) e.u./dl (missing) MONOCYTES # (AUTO) 2024-11-25 05:35 [facility] 0.6 10 3/ul (missing) BILIRUBIN,TOTAL 2024-11-25 05:35 [facility] 0.6 mg/dl As of August 2022 testing method has changed, this may include reference ranges. SPECIFIC GRAVITY,URINE 2024-11-25 05:35 [employer] 1.015 (missing) (missing) ALBUMIN/GLOBULIN RATIO 2024-11-25 05:35 [employer] 1.4 (missing) (missing) WHITE BLOOD COUNT 2024-11-25 05:35 [facility] 10.1 x10 3/ul (missing) CHLORIDE 2024-11-25 05:35 [employer] 103 mmol/l As of August 2022 testing method has changed, this may include reference ranges. ALT ALANINE AMINOTRANSFERASE 2024-11-25 05:35 [employer] 12 iu/l As of August 2022 testing method has changed, this may include reference ranges. RED CELL DISTRIBUTION WIDTH 2024-11-25 05:35 [employer] 13.7 % (missing) SODIUM 2024-11-25 05:35 [employer] 139 mmol/l (missing) HGB - HEMOGLOBIN 2024-11-25 05:35 [facility] 15.2 g/dl (missing) GLUCOSE 2024-11-25 05:35 [employer] 151 mg/dl As of August 2022 testing method has changed, this may include reference ranges. CREATININE 2024-11-25 05:35 [facility] 2.1 mg/dl As of August 2022 testing method has changed, this may include reference ranges. AST ASPARTATE AMINOTRANSFERASE 2024-11-25 05:35 [employer] 21 iu/l As of August 2022 testing method has changed, this may include reference ranges. PLT - PLATELET COUNT 2024-11-25 05:35 [employer] 246 10 3/ul (missing) BUN - BLOOD UREA NITROGEN 2024-11-25 05:35 [employer] 26 mg/dl As of August 2022 testing method has changed, this may include reference ranges. MEAN CORPUSCULAR HEMOGLOBIN 2024-11-25 05:35 [employer] 29.7 pg (missing) LYMPHOCYTES # (AUTO) 2024-11-25 05:35 [employer] 3.2 10 3/ul (missing) GLOBULIN 2024-11-25 05:35 [employer] 3.2 g/dl (missing) CARBON DIOXIDE - CO2 2024-11-25 05:35 [employer] 30 mmol/l As of August 2022 testing method has changed, this may include reference ranges. GFR - MDRD 2024-11-25 05:35 [employer] 31 (missing) The IDMS-traceable MDRD Study Equation has been validated extensively in and populations between the ages of 18 and 70 with impaired kidney function (eGFR < 60 mL/min/1.73m2) and has shown good performance for patients with all common causes of kidney disease. Although this equation has not been validated for patients older than 70, an MDRD-derived eGFR may still be a useful tool for providers caring for patients older than 70. References: http://www.nkdep .nih.gov/lab-lupe luation/gfr/crea tinine-stand ardization, last updated April 2011. MEAN CORPUSCULAR HGB CONC 2024-11-25 05:35 [employer] 31.6 g/dl (missing) WBC,URINE 2024-11-25 05:35 [employer] 4-5 /hpf (missing) POTASSIUM 2024-11-25 05:35 [employer] 4.3 mmol/l As of August 2022 testing method has changed, this may include reference ranges. ALBUMIN 2024-11-25 05:35 [employer] 4.5 g/dl As of August 2022 testing method has changed, this may include reference ranges. HCT - HEMATOCRIT 2024-11-25 05:35 [facility] 48.1 % (missing) PH,URINE 2024-11-25 05:35 [employer] 5.0 ph (missing) RED BLOOD COUNT 2024-11-25 05:35 [employer] 5.11 10 6/ul (missing) RBC,URINE 2024-11-25 05:35 [employer] 6-10 /hpf (missing) ANION GAP 2024-11-25 05:35 [employer] 6.0 (missing) (missing) NEUTROPHILS # (AUTO) 2024-11-25 05:35 [employer] 6.2 10 3/ul (missing) LIPASE 2024-11-25 05:35 [employer] 61 u/l As of August 2022 testing method has changed, this may include reference ranges. TOTAL PROTEIN 2024-11-25 05:35 [employer] 7.7 g/dl As of August 2022 testing method has changed, this may include reference ranges. ALKALINE PHOSPHATASE 2024-11-25 05:35 [employer] 82 iu/l As of August 2022 testing method has changed, this may include reference ranges. MEAN PLATELET VOLUME 2024-11-25 05:35 [employer] 9.7 fl (missing) CALCIUM 2024-11-25 05:35 [employer] 9.7 mg/dl As of August 2022 testing method has changed, this may include reference ranges. MEAN CORPUSCULAR VOLUME 2024-11-25 05:35 [facility] 94.1 fl (missing) CLARITY,URINE 2024-11-25 05:35 [facility] CLEAR (missing) (missing) SQUAMOUS EPITHELIAL CELL,UR 2024-11-25 05:35 [facility] FEW Squamous (missing) (missing) URINE MICROSCOPIC INDICATED? 2024-11-25 05:35 [facility] INDICATED (missing) (missing) OCCULT BLOOD,URINE 2024-11-25 05:35 [facility] LARGE (missing) (missing) LEUKOCYTE ESTERASE, URINE 2024-11-25 05:35 [facility] NEGATIVE (missing) (missing) NITRITE,URINE 2024-11-25 05:35 [facility] NEGATIVE (missing) (missing) BILIRUBIN,URINE 2024-11-25 05:35 [facility] NEGATIVE (missing) Bilirubin can be influenced by color interference. Please correlate positive results with clinical presentation GLUCOSE, URINE (UA) 2024-11-25 05:35 [facility] NEGATIVE mg/dl (missing) KETONES,URINE (UA) 2024-11-25 05:35 [facility] NEGATIVE mg/dl (missing) PROTEIN,URINE 2024-11-25 05:35 [facility] NEGATIVE mg/dl (missing) UR CULTURE IF IND 2024-11-25 05:35 [facility] NOT INDICATED (missing) (missing) BACTERIA,URINE 2024-11-25 05:35 [facility] Rare /hpf (missing) COLOR,URINE 2024-11-25 05:35 [facility] YELLOW (missing) URINE CLEAN CATCH Result panel 3 CHLORIDE 2024-11-27 07:24 [facility] 103 mmol/l As of August 2022 testing method has changed, this may include reference ranges. GLUCOSE 2024-11-27 07:24 [facility] 116 mg/dl As of August 2022 testing method has changed, this may include reference ranges. SODIUM 2024-11-27 07:24 [facility] 137 mmol/l (missing) CARBON DIOXIDE - CO2 2024-11-27 07:24 [facility] 25 mmol/l As of Aug testing method has changed, this may include reference ranges. POTASSIUM 2024-11-27 07:24 [facility] 5.2 mmol/l As of August 2022 testing method has changed, this may include reference ranges. BUN - BLOOD UREA NITROGEN 2024-11-27 07:24 [facility] 65 mg/dl As of Aug testing method has changed, this may include reference ranges. GFR - MDRD 2024-11-27 07:24 [facility] 7 (missin g) The IDMS-traceable MDRD Study Equation has been validated extensively in and populations between the ages of 18 and 70 with impaired kidney function (eGFR < 60 mL/min/1.73m2) and has shown good performance for patients with all common causes of kidney disease. Although this equation has not been validated for patients older than 70, an MDRD-derived eGFR may still be a useful tool for providers caring for patients older than 70. References: http://www.nkdep.nih .gov/lab-evaluation/ gfr/creatinine-stand ardization, last updated April 2011. CREATININE 2024-11-27 07:24 [facility] 7.6 mg/dl Critical result CRE 7.6 mg/dL called to and read back by DOUG Crespo RN AT UROLOGY at 27-Nov-2024 07:59 by Betty. As of August 2022 testing method has changed, this may include reference ranges. CALCIUM 2024-11-27 07:24 [facility] 8.5 mg/dl As of August 2022 testing method has changed, this may include reference ranges. ANION GAP 2024-11-27 07:24 [facility] 9.0 (missing ) (missing) Social History date description facility
[2024-11-27] MEDS: SODIUM CHLORIDE 0.9% 1,000 ML IV STA (10:14)
[2024-11-27 10:18] LABS: HCT - HEMATOCRIT 44.9 % (42.0-52.0); HGB - HEMOGLOBIN 14.1 g/dL (14.0-18.0); MEAN PLATELET VOLUME 10.0 fL (7.4-11.4); NRBC ABSOLUTE COUNT (AUTO) 0.00 x10^3/uL; NUCLEATED RED BLOOD CELLS AUTO 0.0 /100WBC; PLT - PLATELET COUNT 203 10^3/uL (130-450); RED CELL DISTRIBUTION WIDTH 13.9 % (12.0-15.0)
--- NOTE | 2024-11-27 10:30 | HISTORY & PHYSICAL EXAMINATION ---
Chief Complaint Chief Complaint Chief Complaint: KATHLEEN, right UPJ stone History of Present Illness Admitted From Admitted From:: ER History of Present Illness HPI Comment/Other: Andrew is a 79-year-old male who I saw yesterday for history of right kidney stone. 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 Thankfully this was done as his kidney shows complete failure with his creatinine now 7.6. K 5.2. He is NPO in preparation for procedure Colonoscopy Questionnaire In the last 30 days have you experienced these symptoms? PFSH Active Problems All Active Problems (Updated 11/27/24 @ 11:36 by Esa Moon MD) Acute unilateral obstructive uropathy (Acute) KATHLEEN (acute kidney injury) (Acute) Kidney cysts (Acute) Ureterolithiasis (Acute) Acute right flank pain (Acute) B12 deficiency (Acute) Hypertension, essential, benign (Chronic) Hyperlipidemia (Chronic) GERD (gastroesophageal reflux disease) (Chronic) Sleep apnea (Chronic) Diabetes mellitus type 2, controlled, without complications (Chronic) Peripheral neuropathy (Chronic) BPH (benign prostatic hyperplasia) (Chronic) Chronic renal insufficiency (Chronic) Allergic rhinitis (Chronic) Screening for malignant neoplasm of prostate (Chronic) Medical History Medical History (Updated 11/27/24 @ 11:36 by Esa Moon MD) Kidney stones Lumbar degenerative disc disease Psoriasis Surgical History Surgical History (Updated 11/27/24 @ 11:28 by Natali Armendariz CRNA) History of lumbar laminectomy History of tonsillectomy History of total right knee replacement (TKR) Family History Family History (Updated 12/26/23 @ 17:14 by Sherri Davis RN) Father No problems noted. Social History Social History Smoking Status: Smoker with current status unk Living Condition: With spouse/s.o. Do you feel safe in your home environment?: Yes History of physical, verbal, emotional, or financial abuse?: No ETOH Use: Liquor Frequency: Daily ETOH - Additional Notes: Martini Substance Use: denies use POLST Patient has POLST: No Meds/Allgy Home Medications Ambulatory Orders Medication Instructions Recorded Confirmed acetaminophen 325 mg tablet 325 - 650 mg PO QID PRN pa in 11/05/24 10/07/25 fluticasone propionate 50 1 spray intranasal BID 12/2511/26/24 mcg/actuation nasal spray,suspension gabapentin 300 mg capsule 300 mg PO Q8H PRN pain 12/2511/26/24 Permanent Disabled Placard 12/27/23 11/26/24 blood-glucose meter (Freestyle 12/27/23 11/26/24 [employer] meter) diclofenac sodium 1 % topical gel 2 - 4 g topical QID PRN pain #100 12/27/23 11/26/24 grams lidocaine 5 % topical patch 3 patch topical QDAY #30 e a 03/26/24 11/26/24 ([facility]) lisinopril 20 mg tablet 20 mg PO DAILY #90 tabs 06/1411/26/24 loratadine 10 mg tablet (Claritin) 10 mg PO QDAY #90 t abs 03/26/24 11/26/24 metoprolol succinate 50 mg 50 mg PO DAILY #90 tabs 06/1411/26/24 tablet,extended release 24 hr tamsulosin 0.4 mg capsule (Flomax) 0.4 mg PO DAILY #90 caps 03/26/24 11/26/24 glipizide 2.5 mg tablet, extended 2.5 mg PO DAILY #90 tabs 06/26/24 11/26/24 release 24 hr simvastatin 20 mg tablet 20 mg PO HS #90 tabs 09/17/ 5 11/26/24 blood sugar diagnostic (FreeStyle #100 ea 10/30/2409/13 Test strips) lancets 28 gauge (Super Thin #100 ea 10/30/24 11/26/24 Lancets) tirzepatide 5 mg/0.5 mL 5 mg (0.5 mL) subcut QWEEK # 2 mL 10/30/24 11/26/24 subcutaneous pen injector ondansetron HCl 4 mg tablet 4 mg PO Q8H PRN nausea and 11/25/24 11/26/24 vomiting #20 tabs oxycodone 5 mg tablet 5 mg PO QID PRN pain #20 tab s 11/25/24 11/26/24 Allergies Allergies Allergy/AdvReac Type Severity Reaction Status Date / Time Penicillins Allergy Severe swelling Verified 11/27/24 09:12 atorvastatin (From Lipitor) Allergy Rash Verified 11/27/24 09:12 cefuroxime (From Ceftin) AdvReac diarrhea, Verified 11/27/24 09:12 nausea ibuprofen AdvReac kidney Verified 11/27/24 09:12 disease Results Lab Results Lab results reviewed: Yes 11/27/24 10:00 11/27/24 10:00 Other Lab Results: Lab Results x24hrs 11/27/24 Range/Units 10:00 WBC 11.7 H (4.8-10.8) x10^3/uL RBC 4.79 (4.70-6.10) 10^6/uL Hgb 14.1 (14.0-18.0) g/dL Hct 44.9 (42.0-52.0) % MCV 93.7 (80.0-94.0) fL MCH 29.4 (27.0-31.0) pg MCHC 31.4 L (32.0-36.0) g/dL RDW 13.9 (12.0-15.0) % Plt Count 203 (130-450) 10^3/uL MPV 10.0 (7.4-11.4) fL Neut # (Auto) 8.9 H (1.5-6.6) 10^3/uL Lymph # (Auto) 1.6 (1.5-3.5) 10^3/uL [place] # (Auto) 1.0 (0.0-1.0) 10^3/uL Eos # (Auto) 0.0 (0.0-0.7) 10^3/uL Baso # (Auto) 0.0 (0.0-0.1) 10^3/uL Absolute Nucleated RBC 0.00 x10^3/uL Nucleated RBC % 0.0 /100WBC Diagnostic Imaging Results Diagnostic Imaging Results: positive Read independently Exam Exam Vital Signs: Vital Signs x48h Temp Pulse Resp BP Pulse Ox 11/27/24 09:42 68 18 179/90 H 95 11/27/24 09:12 37 C 60 18 173/92 H 98 NAD RRR CTA b/l Impression/Plan Problem List (1) Ureterolithiasis: Plan: 79-year-old male diabetic, CKD, obesity, right 4x7 mm UPJ stone with minimal symptoms but in a functionally solitary system with significantly atrophic left kidney now with full renal failure -To OR today for cystoscopy, right ureteral stent placement. The risk, benefits and alternatives were discussed with patient. Specific risks of infection, bleeding, injury to adjacent structures, need for additional procedures, failure of therapy were discussed. Patient states understanding and consents to the above plan He will likely be admitted to the medical service afterwards He will need definitive management of his stones in the future
[2024-11-27] MEDS: METOPROLOL 5 MG/5 ML VIAL IVP STA (10:40)
[2024-11-27] MEDS: ENALAPRILAT 1.25 MG/ML VIAL IVP STA (10:41)
[2024-11-27 11:01] LABS: ALT ALANINE AMINOTRANSFERASE 9.0 IU/L (10-60); AST ASPARTATE AMINOTRANSFERASE 16.0 IU/L (10-42); BUN - BLOOD UREA NITROGEN 65.0 mg/dL (6-20); CARBON DIOXIDE - CO2 23.0 mmol/L (21-32); CREATININE 7.9 mg/dL (0.6-1.3); GFR - MDRD 7.0 (>89)
[2024-11-27] MEDS ORDERED: SUCCINYLCHOLINE 200 MG/10 ML VIAL ONE (11:12)
[2024-11-27] MEDS ORDERED: ONDANSETRON 4 MG/2 ML VIAL ONE (11:12)
[2024-11-27] MEDS ORDERED: PROPOFOL 200 MG/20 ML VIAL IVP ONE (11:12)
[2024-11-27] MEDS ORDERED: LIDOCAINE-PF 2% 10 ML AMP SUBQ ONE (11:12)
[2024-11-27] MEDS ORDERED: fentaNYL 100 MCG/2 ML VIAL ONE (11:12)
--- NOTE | 2024-11-27 11:21 | ANESTHESIA PROCEDURE NOTE ---
Pre-Anesthesia VS, & Labs Diagnosis Surgical Diagnosis:: R kidney stone Procedure Procedure: R cystoscopy with stent placement Vitals Vital Signs: Temp Pulse Resp BP Pulse Ox 37 C 59 L 18 189/108 H 100 11/27/24 09:12 11/27/24 10:55 11/27/24 10:55 11/27/24 10:55 11/27/24 10:55 NPO NPO: >8 hours Lab Results Current Lab Results: Laboratory Tests 11/27/24 10:00: WBC 11.7 H, RBC 4.79, Hgb 14.1, Hct 44.9, MCV 93.7, MCH 29.4, M CHC 31.4 L, RDW 13.9, Plt Count 203, MPV 10.0, Neut # (Auto) 8.9 H, Lymph # (Auto) 1.6, [place] # (Auto) 1.0, Eos # (Auto) 0.0, Baso # (Auto) 0.0, Absolute Nucleated RBC 0.00, Nucleated RBC % 0.0, Sodium 136, Potassium 5.4 H, Chloride 104, Carbon Dioxide 23, Anion Gap 9.0, BUN 65 H, Creatinine 7.9 H*, Estimated GFR (MDRD) 7 L, Glucose 94, Calcium 8.7, Magnesium 2.3, Total Bilirubin 1.0, AST 16, ALT 9 L, Alkaline Phosphatase 63, Total Protein 7.1, Albumin 4.1, Globulin 3.0, Albumin/Globulin Ratio 1.4, Lipase 56 11/27/24 10:00 11/27/24 10:00 Meds/Allgy Home Medications Ambulatory Orders Medication Instructions Recorded Confirmed acetaminophen 325 mg tablet 325 - 650 mg PO QID PRN pa in 12/26/23 11/26/24 fluticasone propionate 50 1 spray intranasal BID 12/2511/26/24 mcg/actuation nasal spray,suspension gabapentin 300 mg capsule 300 mg PO Q8H PRN pain 12/2511/26/24 Permanent Disabled Placard 12/27/23 11/26/24 blood-glucose meter (Freestyle 12/27/23 11/26/24 [employer] meter) diclofenac sodium 1 % topical gel 2 - 4 g topical QID PRN pain #100 12/27/23 11/26/24 grams lidocaine 5 % topical patch 3 patch topical QDAY #30 e a 02/04/25 10/07/25 ([facility]) lisinopril 20 mg tablet 20 mg PO DAILY #90 tabs 02/0 06/1411/26/24 loratadine 10 mg tablet (Claritin) 10 mg PO QDAY #90 t abs 03/26/24 11/26/24 metoprolol succinate 50 mg 50 mg PO DAILY #90 tabs 06/1411/26/24 tablet,extended release 24 hr tamsulosin 0.4 mg capsule (Flomax) 0.4 mg PO DAILY #90 caps 03/26/24 11/26/24 glipizide 2.5 mg tablet, extended 2.5 mg PO DAILY #90 tabs 06/26/24 11/26/24 release 24 hr simvastatin 20 mg tablet 20 mg PO HS #90 tabs 5 11/26/24 blood sugar diagnostic (FreeStyle #100 ea 10/30/2409/13 Test strips) lancets 28 gauge (Super Thin #100 ea 10/30/24 11/26/24 Lancets) tirzepatide 5 mg/0.5 mL 5 mg (0.5 mL) subcut QWEEK # 2 mL 10/30/24 11/26/24 subcutaneous pen injector ondansetron HCl 4 mg tablet 4 mg PO Q8H PRN nausea and 11/25/24 11/26/24 vomiting #20 tabs oxycodone 5 mg tablet 5 mg PO QID PRN pain #20 tab s 11/25/24 11/26/24 Allergies Allergies Allergy/AdvReac Type Severity Reaction Status Date / Time Penicillins Allergy Severe swelling Verified 11/27/24 09:12 atorvastatin (From Lipitor) Allergy Rash Verified 11/27/24 09:12 cefuroxime (From Ceftin) AdvReac diarrhea, Verified 11/27/24 09:12 nausea ibuprofen AdvReac kidney Verified 11/27/24 09:12 disease PFSH Active Problems All Active Problems KATHLEEN (acute kidney injury) (Acute) Kidney cysts (Acute) Ureterolithiasis (Acute) Acute right flank pain (Acute) B12 deficiency (Acute) Hypertension, essential, benign (Chronic) Hyperlipidemia (Chronic) GERD (gastroesophageal reflux disease) (Chronic) Sleep apnea (Chronic) Diabetes mellitus type 2, controlled, without complications (Chronic) Peripheral neuropathy (Chronic) BPH (benign prostatic hyperplasia) (Chronic) Chronic renal insufficiency (Chronic) Allergic rhinitis (Chronic) Screening for malignant neoplasm of prostate (Chronic) Medical History Medical History Kidney stones Lumbar degenerative disc disease Psoriasis Surgical History Surgical History (Updated 11/27/24 @ 11:28 by Natali Armendariz CRNA) History of lumbar laminectomy History of tonsillectomy History of total right knee replacement (TKR) Family History Family History (Updated 12/26/23 @ 17:14 by Sehrri Davis RN) Father No problems noted. Social History Social History Smoking Status: Smoker with current status unk Living Condition: With spouse/s.o. Do you feel safe in your home environment?: Yes History of physical, verbal, emotional, or financial abuse?: No ETOH Use: Liquor Frequency: Daily ETOH - Additional Notes: Martini Substance Use: denies use POLST Patient has POLST: No POLST CPR Status: Attempt Resuscitation (CPR) Anesthesia Exam (Expanded) Exam General: Alert, Oriented x3 and Cooperative Dental: WNL Mouth Openin Fingerbreadth Mallampati classification: III Thyromental Distance: less than 4 cm Respiratory: Lungs clear Cardiovascular: Regular rate Exam Exam Vital Signs: Vital Signs x48h Temp Pulse Resp BP Pulse Ox 11/27/24 10:55 59 L 18 189/108 H 100 11/27/24 10:50 59 L 18 190/107 H 96 11/27/24 10:45 57 L 18 192/99 H 94 11/27/24 10:30 61 18 183/100 H 97 11/27/24 09:42 68 18 179/90 H 95 11/27/24 09:12 37 C 60 18 173/92 H 98 Plan Problem List (1) Ureterolithiasis: Plan: 79-year-old male diabetic, CKD, obesity, right 4x7 mm UPJ stone with minimal symptoms but in a functionally solitary system with significantly atrophic left kidney now with full renal failure -To OR today for cystoscopy, right ureteral stent placement. The risk, benefits and alternatives were discussed with patient. Specific risks of infection, bleeding, injury to adjacent structures, need for additional procedures, failure of therapy were discussed. Patient states understanding and consents to the above plan He will likely be admitted to the medical service afterwards He will need definitive management of his stones in the future (2) History of total right knee replacement (TKR): (3) History of lumbar laminectomy: (4) History of tonsillectomy: Plan Anesthesia Type: General Consent for Procedure(s) Verified and Reviewed: Yes Code Status: Attempt Resuscitation ASA Classification ASA classification: 3-Severe systemic disease Is this case an emergency?: Yes
[2024-11-27] MEDS ORDERED: HYDROmorphone 0.5 MG/0.5 ML SYRINGE IVP PRN (11:31)
[2024-11-27] MEDS ORDERED: ATROPINE ABBOJECT 1 MG/10 ML SYRINGE IVP PRN (11:31)
[2024-11-27] MEDS ORDERED: fentaNYL 100 MCG/2 ML VIAL IVP PRN (11:31)
[2024-11-27] MEDS ORDERED: NALOXONE 0.4 MG/ML VIAL IVP PRN (11:31)
[2024-11-27] MEDS ORDERED: hydrALAZINE INJ 20 MG/ML VIAL IVP PRN (11:31)
[2024-11-27] MEDS ORDERED: ONDANSETRON 4 MG/2 ML VIAL IVP PRN (11:31)
[2024-11-27] MEDS ORDERED: LABETALOL 20 MG/4 ML SYRINGE IVP PRN (11:31)
[2024-11-27] MEDS ORDERED: MORPHINE 2 MG/ML CARPUJECT IVP PRN (11:31)
[2024-11-27] MEDS ORDERED: ePHEDrine 50 MG/ML VIAL IVP PRN (11:31)
[2024-11-27] MEDS: LACTATED RINGERS 1,000 ML IV SCH (11:46)
[2024-11-27] MEDS: HYDROmorphone 1 MG/ML CARPUJECT IVP STA (11:46)
[2024-11-27] MEDS ORDERED: ROCURONIUM 50 MG/5 ML VIAL ONE (11:55)
[2024-11-27] MEDS ORDERED: LACTATED RINGERS 1,000 ML IV PRN (12:01)
[2024-11-27] MEDS ORDERED: LIDOCAINE 2% URO-JET 5 ML SYRINGE UR ONE (12:02)
[2024-11-27] MEDS ORDERED: CIPROFLOXACIN 400 MG/200 ML 400 MG/200 ML BAG IV ONE (12:33)
[2024-11-27] MEDS ORDERED: iohexoL-240 20 ML VIAL IVP ONE (12:36)
[2024-11-27] MEDS ORDERED: SUGAMMADEX 200 MG/2 ML VIAL IVP ONE (12:45)
--- NOTE | 2024-11-27 12:58 | OPERATIVE REPORT ---
Operative Report General Admit Date: 11/27/24 Procedure Data: Operation Date: 11/27/24 12:00 Proposed Procedures p Cystoscopy With Ureteral Stent Placement(Right) - Norberto Figueroa MD Actual Procedures p Cystoscopy With Ureteral Stent Placement(Right) - Norberto Figueroa MD Pre-Op Diagnosis: KATHLEEN,RIGHT URETERAL STONE Anesthesia Type General Case Staff Anesthesia Provider: Natali Armendariz Rep: Andre Guerra Case Times Procedure Start: 11/27/24 12:34 Time out: 11/27/24 12:34 Implants STENT URETERAL [id number] Pre-Op Diagnosis: right ureteral stone Post Op Diagnosis: same Procedure Note Estimated Blood Loss (ml): 1 Findings: right hydronephrosis, stent placed trilobar prostatic hypertrophy Complications: none Other Other Information/Narrative: After informed consent was obtained the patient was brought to the OR and laid in the supine position. The patient was anesthetized per anesthesia protocols and prepped and draped in usual sterile fashion. A formal timeout was performed reconfirming the patient and procedure and laterality. A 22 Mauritanian cystoscope was advanced easily per urethra into the urinary bladder. He had trilobar hypertrophy of his prostate with a large median lobe. His right ureteral orifice was identified in the crotch between the median lobe and lateral lobe at the expected location on the trigone. A sensor wire was placed up into the kidney under fluoroscopic guidance. A 5 Mauritanian open-ended ureteral catheter was placed over the wire up into the kidney and gentle retrograde pyelogram confirmed placement within the renal collecting system. We could not see a radiopaque stone. A 6 Mauritanian 28 cm double-J stent was placed with good curling noted in the kidney and good curl noted in the bladder. The bladder was emptied and a 20 Mauritanian two-way Villa catheter was placed after Uro-Jet. This concluded the procedure and the patient tolerated the procedure well. He was brought to the PACU without further incident. He will go to the medical service overnight for careful monitoring
[2024-11-27] MEDS: CIPROFLOXACIN 400 MG/200 ML 400 MG/200 ML BAG IV ONE (13:15)
--- NOTE | 2024-11-27 13:19 | HISTORY & PHYSICAL EXAMINATION ---
Chief Complaint Chief Complaint Chief Complaint: Elevated creatinine, kidney stones History of Present Illness Admitted From Admitted From:: OR History Obtained From Records Reviewed: EHR History obtained from: EHR, Patient History of Present Illness HPI Comment/Other: Andrew Wesley is a 79-year-old male with a past medical history of prior kidney stones with lithotripsy, HTN, HL, GERD, BPH, DANAE, and T2DM on Mounjaro who presents for ureterolithiasis s/p cystoscopy and right ureteral stent placement. Patient initially presented 11/25 in the ED with acute onset of severe right flank pain over 2-3 hours. He did not have urinary symptoms (denied dysuria, urinary frequency/urgency). Workup was revealing for Cr 2.1 (slightly elevated from baseline Cr ~1.8) and CT abdomen findings of 7x4mm right UPJ stone, mild right-sided hydronephrosis, and right perinephric fat stranding consistent with nephrolithiasis and left atrophic kidney. He was treated for pain and advised to follow-up with outpatient urology. He was thus seen by Dr. Figueroa of [facility] 11/26, who recommended potentially urgent intervention pending lab follow-up 11/27 given concerns of worsening KATHLEEN and essentially solitary right kidney function given the patient's left atrophic kidney. He was found to be in renal failure on 11/27 as his Cr further deteriorated to 7.6 and he became hyperkalemic 5.2. He subsequently underwent cystoscopy and right ureteral stent placement the same day. He is admitted under the Hospitalist service for medical management. At time of this assessment 0 11/27, patient has no overall complaints. He states his right flank pain was sharp, 8-9/10 but has significantly improved following his procedure 0/10. He denies nausea, dizziness, chest pain, dyspnea, palpitations. Meds/Allgy Home Medications Ambulatory Orders Medication Instructions Recorded Confirmed acetaminophen 325 mg tablet 325 - 650 mg PO QID PRN pa in 12/26/23 11/27/24 fluticasone propionate 50 1 spray intranasal BID 12/2511/27/24 mcg/actuation nasal spray,suspension gabapentin 300 mg capsule 300 mg PO Q8H PRN pain 12/2511/27/24 Permanent Disabled Placard 12/27/23 11/26/24 blood-glucose meter (Freestyle 12/27/23 11/26/24 InsuLinx meter) diclofenac sodium 1 % topical gel 2 - 4 g topical QID PRN pain #100 12/27/23 11/27/24 grams lisinopril 20 mg tablet 20 mg PO DAILY #90 tabs 06/1411/27/24 metoprolol succinate 50 mg 50 mg PO DAILY #90 tabs 06/1411/27/24 tablet,extended release 24 hr tamsulosin 0.4 mg capsule (Flomax) 0.4 mg PO DAILY #90 caps 03/26/24 11/27/24 glipizide 2.5 mg tablet, extended 2.5 mg PO DAILY #90 tabs 06/26/24 11/27/24 release 24 hr simvastatin 20 mg tablet 20 mg PO HS #90 tabs 5 11/27/24 blood sugar diagnostic (FreeStyle #100 ea 10/30/2409/13 Test strips) lancets 28 gauge (Super Thin #100 ea 10/30/24 11/26/24 Lancets) tirzepatide 5 mg/0.5 mL 5 mg (0.5 mL) subcut QWEEK # 2 mL 10/30/24 11/27/24 subcutaneous pen injector ondansetron HCl 4 mg tablet 4 mg PO Q8H PRN nausea and 11/25/24 11/27/24 vomiting #20 tabs oxycodone 5 mg tablet 5 mg PO QID PRN pain #20 tab s 11/25/24 11/27/24 lidocaine 5 % topical patch 3 patch topical DAILY PRN pain 11/27/24 11/27/24 (Lidoderm) loratadine 10 mg tablet (Claritin) 10 mg PO DAILY PRN allergy symptoms 11/27/24 11/27/24 Allergies Allergies Allergy/AdvReac Type Severity Reaction Status Date / Time Penicillins Allergy Severe swelling Verified 11/27/24 09:12 atorvastatin (From Lipitor) Allergy Rash Verified 11/27/24 09:12 cefuroxime (From Ceftin) AdvReac diarrhea, Verified 11/27/24 09:12 nausea ibuprofen AdvReac kidney Verified 11/27/24 09:12 disease PFSH Active Problems All Active Problems (Updated 11/27/24 @ 15:02 by Meena Singh) Hyperkalemia (Acute) Acute unilateral obstructive uropathy (Acute) KATHLEEN (acute kidney injury) (Acute) Kidney cysts (Acute) Ureterolithiasis (Acute) Acute right flank pain (Acute) B12 deficiency (Acute) Hypertension, essential, benign (Chronic) Hyperlipidemia (Chronic) GERD (gastroesophageal reflux disease) (Chronic) Sleep apnea (Chronic) Diabetes mellitus type 2, controlled, without complications (Chronic) Peripheral neuropathy (Chronic) BPH (benign prostatic hyperplasia) (Chronic) Chronic renal insufficiency (Chronic) Allergic rhinitis (Chronic) Screening for malignant neoplasm of prostate (Chronic) Medical History Medical History (Updated 11/27/24 @ 15:02 by Meena Singh) Arthritis Bilateral hands Kidney stones Lumbar degenerative disc disease Psoriasis Surgical History Surgical History History of lumbar laminectomy History of tonsillectomy History of total right knee replacement (TKR) Family History Family History (Updated 12/26/23 @ 17:14 by Sherri Davis RN) Father No problems noted. Social History Social History (Updated 11/27/24 @ 14:53 by Meena Singh) Smoking Status: Former smoker If you are a former smoker, when did you quit? (Date/Year): Pipe smoking > 30 years ago, no longer smokes tobacco Second hand tobacco smoke exposure: No Do you dip or chew tobacco?: No Do you vape?: No Patient requests smoking cessation consult: No Initiate information on smoking cessation: No Living arrangement: At home Marital Status: Living Condition: With spouse/s.o. Support Person: Yes Relationship Notes: Four children Living Situation Details: Lives in a rambler with , has one small step to get into home DPOA / Health Care Directive - Additional Notes: , Cherelle would be the person to make healthcare decisions in the event he is unable to make them himself Physical Activity: Walking Level: Independent Do you feel safe in your home environment?: Yes History of physical, verbal, emotional, or financial abuse?: No ETOH Use: Wine, Beer, Liquor and Other Frequency: Daily ETOH - Additional Notes: 1-2 martinis daily, 1-2 glasses of wine or 1-2 beers 3-4x weekly Substance Use: denies use 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 He is able to feed, groom, bathe, toilet himself independently, and can manage finances and cook. Recently he has taken up [employer] as a hobby and is creating [employer]. Exam Exam Vital Signs: Vital Signs x48h Temp Pulse Pulse Resp BP BP Pulse Ox 11/27/24 14:22 97.7 F 62 18 150/62 H 98 11/27/24 14:02 97.9 F 63 18 159/84 H 96 11/27/24 13:43 97.7 F 62 18 161/84 H 96 11/27/24 13:26 66 16 164/95 H 95 11/27/24 13:20 67 19 167/90 H 94 11/27/24 13:15 70 15 169/99 H 96 11/27/24 13:11 69 23 163/91 H 97 11/27/24 13:06 68 21 142/94 H 99 11/27/24 12:57 99.9 F 75 18 128/80 98 11/27/24 12:21 88 18 182/110 H 99 11/27/24 11:40 62 18 181/125 H 97 11/27/24 11:25 59 L 16 185/96 H 96 11/27/24 11:10 60 18 187/99 H 99 11/27/24 10:55 59 L 18 189/108 H 100 11/27/24 10:50 59 L 18 190/107 H 96 11/27/24 10:45 57 L 18 192/99 H 94 11/27/24 10:30 61 18 183/100 H 97 11/27/24 09:42 68 18 179/90 H 95 11/27/24 09:12 98.6 F 60 18 173/92 H 98 Constitutional normal general appearance, no apparent distress, abnormal body habitus (overweight), no limitations and alert HENMT normocephalic, head/scalp atraumatic, external ears normal and oral mucous membranes normal Eyes PERRL, EOMs intact bilaterally, conjunctivae normal and no scleral icterus Neck/C-Spine trachea midline and supple Lymph no lymphadenopathy noted Chest inspection of chest normal Respiratory breath sounds equal bilaterally, normal respiratory effort, clear to auscultation bilaterally, no wheezes, no rales, no retractions and no use of accessory muscles Cardiovascular normal heart rate noted, regular rhythm noted, no murmur, no JVD, peripheral pulses 2+ throughout, no bruits noted and edema noted (1+ ankle edema) Gastrointestinal abdomen normal to inspection, abdomen soft to palpation and nontender to palpation Genitourinary no CVA tenderness, bladder normal to palpation, external appearance normal, penis normal and meatus abnormal (blood at meatus) Blood-tinged pink urine draining in Villa catheter bag Extremities normal to inspection Neurology no movement abnormality noted and no sensory deficits noted Psychiatry mental status grossly normal, oriented x3, thought process normal, cooperative, affect normal, psychomotor activity normal and memory normal Skin skin color normal, no wounds, no lacerations and skin turgor normal Conclusion/Plan Problem List (1) Ureterolithiasis: Plan: Patient initially presented with right flank pain. CT abdomen/pelvis revealed right 7 x 4 UPJ stone with right-sided hydronephrosis and right perinephritic fat stranding. - S/p cystoscopy and right ureteral stent placement for hydronephrosis - Will require additional urology follow-up for management of stones - Monitor for post-obstructive diuresis, > 200cc/h urine output for at least 2 consecutive hours - Villa catheter in place for strict I/O - IV Ciprofloxacin q12h for now following urological procedure, will likely d/c tomorrow if patient's WBC and kidney function improving (2) KATHLEEN (acute kidney injury): Plan: Patient presents with acute renal failure with Cr elevation from 2.1 to 7.6 within 24 hours, likely secondary to postrenal causes from right ureterolithiasis and functionally solitary right kidney function in setting of left atrophic kidney. I anticipate this will improve following his right ureteral stent placement. - Trend BMP (3) Hyperkalemia: Plan: K elevation from 4.3 on 11/25 to 5.2 on 11/27, likely secondary to postrenal KATHLEEN. I anticipate this will improve following his right ureteral stent placement. - Trend BMP (4) Diabetes mellitus type 2, controlled, without complications: Plan: Patient is on Mounjaro for T2DM at home. Last HgbA1c 6.8% on 11/09/24. BG is well-controlled here. I will manage him with insulin temporarily while he is inpatient. - BG ACHS - Low dose correctional insulin (5) Hypertension, essential, benign: Plan: BP has been elevated here, with SBPs 170s-180s. I believe this is likely multifactorial related to pain, hospitalization stress, and surgical intervention. He asymptomatic; denies chest pain, palpitations. His other VSS. - Holding lisinopril due to KATHLEEN; will require outpatient follow-up to assess kidney function prior to restarting medication - Continue home metoprolol - Would not intervene acutely for his BP unless he becomes symptomatic (6) Hyperlipidemia: Plan: Noted, he is taking simvastatin at home. - Continue home simvastatin Qualifiers: Hyperlipidemia type: unspecified Qualified Code(s): E78.5 - Hyperlipidemia, unspecified (7) GERD (gastroesophageal reflux disease): Plan: Noted, he reports he is well-controlled on famotidine at home, which he takes as needed. He denies heartburn at this time. - May consider famotidine PRN if patient develops symptoms while here Qualifiers: Esophagitis presence: esophagitis presence not specified Qualified Code(s): K21.9 - Gastro-esophageal reflux disease without esophagitis (8) Sleep apnea: Plan: Noted, he uses a CPAP religiously at home. - Continue cpap at home; states his might have trouble bringing it from home, previously in such a situation he would be placed on oxygen Qualifiers: Sleep apnea type: obstructive Qualified Code(s): G47.33 - Obstructive sleep apnea (adult) (pediatric) (9) BPH (benign prostatic hyperplasia): Plan: Noted, he is on tamsulosin at home. - Continue home tamsulosin Qualifiers: Lower urinary tract symptom presence: symptoms absent Qualified Code(s): N40.0 - Benign prostatic hyperplasia without lower urinary tract symptoms Plan Inpatient Checklist Lines/Drains/Airways: PIV Fluids/Electrolytes/Nutrition: Carbohydrate controlled diet DVT Prophylaxis: Enoxaparin 40mg SQ daily Discharge Barriers: Likely return home with , pending Villa removal and voiding independently, tolerating diet, improving kidney function Lab Results Lab results reviewed: Yes 11/27/24 10:00 11/27/24 10:00 Diagnostic Imaging Results Diagnostic Imaging Results: positive Final report reviewed EKG Results EKG Interpreted Independently: Yes EKG Comparison: Old EKG unavailable Core Measures Anticipated LOS I expect patient to be DC'd or transferred within 96 hours.: Yes Issues Hospital Issues and Management Plan: Ureterolithiasis s/p cystoscopy and right ureteral stent DVT/VTE - Prophylaxis VTE/DVT Device ordered at admit?: Yes VTE/DVT Prophylaxis med ordered at admit?: Yes
[2024-11-27] MEDS ORDERED: ACETAMINOPHEN 325 MG TABLET PO PRN (13:42)
[2024-11-27] MEDS ORDERED: SODIUM CHLORIDE FLUSH 0.9% 10 ML SYRINGE IVP PRN (13:42)
[2024-11-27] MEDS ORDERED: ONDANSETRON ODT 4 MG TABLET TL PRN (13:42)
--- NOTE | 2024-11-27 14:36 | XRAY Report ---
PROCEDURE: FL OR C-Arm Procedure INDICATIONS: intra-op use FLUORO TIME: .1 TECHNIQUE: Real time fluoroscopy was performed of the abdomen. COMPARISON: None. FINDINGS/IMPRESSION: Fluoroscopic evidence utilized for a nephroureteral stent placement Reviewed by: Brandon Bright MD on 11/27/2024 1:33 PM AK Approved by: Brandon Bright MD on 11/27/2024 1:33 PM AKDT Station ID: [id number]
--- NOTE | 2024-11-27 14:51 | PHARMACY PROGRESS NOTE ---
Best Possible Medication History Admit Date and Time: 11/27/24 1208 Home Medications Medication Instructions Recorded Confirmed Type acetaminophen 325 mg tablet 325 - 650 mg PO QID PRN pa in 12/26/23 11/27/24 History fluticasone propionate 50 1 spray intranasal BID 12/2511/27/24 History mcg/actuation nasal spray,suspension gabapentin 300 mg capsule 300 mg PO Q8H PRN pain 12/2511/27/24 History Permanent Disabled Placard 12/27/23 11/26/24 History blood-glucose meter (Freestyle 12/27/23 11/26/24 Hist ory InsuLinx meter) diclofenac sodium 1 % topical gel 2 - 4 g topical QID PRN pain #100 12/27/23 11/27/24 Rx grams lisinopril 20 mg tablet 20 mg PO DAILY #90 tabs 06/1411/27/24 Rx metoprolol succinate 50 mg 50 mg PO DAILY #90 tabs 06/1411/27/24 Rx tablet,extended release 24 hr tamsulosin 0.4 mg capsule (Flomax) 0.4 mg PO DAILY #90 caps 03/26/24 11/27/24 Rx glipizide 2.5 mg tablet, extended 2.5 mg PO DAILY #90 tabs 06/26/24 11/27/24 Rx release 24 hr simvastatin 20 mg tablet 20 mg PO HS #90 tabs 09/17/ 5 11/27/24 Rx blood sugar diagnostic (FreeStyle #100 ea 10/30/2409/13 Rx Test strips) lancets 28 gauge (Super Thin #100 ea 10/30/24 11/26/24 Rx Lancets) tirzepatide 5 mg/0.5 mL 5 mg (0.5 mL) subcut QWEEK # 2 mL 10/30/24 11/27/24 Rx subcutaneous pen injector ondansetron HCl 4 mg tablet 4 mg PO Q8H PRN nausea and 11/25/24 11/27/24 Rx vomiting #20 tabs oxycodone 5 mg tablet 5 mg PO QID PRN pain #20 tab s 11/25/24 11/27/24 Rx lidocaine 5 % topical patch 3 patch topical DAILY PRN pain 11/27/24 11/27/24 History (Lidoderm) loratadine 10 mg tablet (Claritin) 10 mg PO DAILY PRN allergy symptoms 11/27/24 11/27/24 History Processed by: Pharmacy Medications reviewed in ED?: No Medication History completed: Yes Patient Interview: Completed Secondary Source(s): Insurance records [facility] Statement: As the person ultimately responsible for medication therapy, providers are able to order a medication from an existing home medication list in [facility] via the "Reconcile Routine" prior to Confirmation of that medication by support assistant. Such practice is discouraged except when the physician, in their clinical judgment, deems that a medical need exists for a medication without regard to previous use.
[2024-11-27] MEDS ORDERED: GABAPENTIN 300 MG CAPSULE PO PRN (15:02)
--- NOTE | 2024-11-27 16:36 | ANESTHESIA POST OP EVALUATION ---
Anesthesia Post Eval Post Anesthesia Eval Vitals: Last Vital Signs Temp 37.2 C 11/27/24 15:45 Pulse 65 11/27/24 15:45 Resp 20 11/27/24 15:45 BP 165/74 H 11/27/24 15:45 Pulse Ox 98 11/27/24 15:45 CV Function Including HR & BP: Stable Pain Control: Satisfactory Nausea & Vomiting: Negative Mental Status: Baseline Respiratory Status: Airway Patent Hydration Status: Satisfactory Anesthesia Complications: None
[2024-11-27] MEDS: SODIUM CHLORIDE FLUSH 0.9% 10 ML SYRINGE IVP SCH (16:55)
[2024-11-27 17:14] LABS: BUN - BLOOD UREA NITROGEN 61.0 mg/dL (6-20); CARBON DIOXIDE - CO2 26.0 mmol/L (21-32); CREATININE 6.9 mg/dL (0.6-1.3); GFR - MDRD 8.0 (>89)
[2024-11-27] MEDS: INSULIN LISPRO 300 UNIT/3 ML PEN SUBQ SCH (18:03)
[2024-11-27] MEDS: FLUTICASONE NASAL SPRAY NAS SCH (20:43)
[2024-11-27] MEDS: Simvastatin 20 MG TAB PO SCH (20:44)
[2024-11-28 00:44] LABS: BUN - BLOOD UREA NITROGEN 60.0 mg/dL (6-20); CARBON DIOXIDE - CO2 23.0 mmol/L (21-32); CREATININE 6.0 mg/dL (0.6-1.3); GFR - MDRD 9.0 (>89)
[2024-11-28 05:36] LABS: HCT - HEMATOCRIT 39.8 % (42.0-52.0); HGB - HEMOGLOBIN 12.9 g/dL (14.0-18.0); MEAN PLATELET VOLUME 9.9 fL (7.4-11.4); PLT - PLATELET COUNT 190.0 10^3/uL (130-450); RED CELL DISTRIBUTION WIDTH 14.2 % (12.0-15.0)
[2024-11-28 05:52] LABS: BUN - BLOOD UREA NITROGEN 55.0 mg/dL (6-20); CARBON DIOXIDE - CO2 24.0 mmol/L (21-32); CREATININE 5.3 mg/dL (0.6-1.3); GFR - MDRD 11.0 (>89); PHOSPHORUS 4.7 mg/dL (2.5-5.0)
--- NOTE | 2024-11-28 08:52 | PROVIDER PROGRESS NOTE ---
Subjective General Admit Date: 11/27/24 Procedure Date: 11/27/24 Post Op Days: 1 Procedure Performed: cysto right stent Other Other Information/Narrative: No acute events overnight. Doing very well. Blood work in the afternoon yesterday showed creatinine improving to 6.0 and then this morning to 5.3. His electrolytes have remained stable. He feels very well. Urine has cleared up. Exam Exam Vital Signs: Vital Signs x48h Temp Pulse Resp BP Pulse Ox 11/28/24 08:11 37.1 C 60 18 170/83 H 97 11/28/24 08:00 37.1 C 60 18 170/83 H 97 11/28/24 07:00 37.1 C 61 20 175/93 H 97 11/28/24 04:57 37.2 C 59 L 20 158/77 H 97 11/28/24 03:15 37.2 C 58 L 20 150/76 H 98 11/28/24 01:00 37.4 C 64 20 155/74 H [address] orange tinged clear urine ABX Reporting Has patient been on IV antibiotics over the past 48 hours?: No Impression/Plan Problem List (1) Ureterolithiasis: Plan: 79-year-old male diabetic, CKD, obesity, right 4x7 mm UPJ stone with minimal symptoms but in a functionally solitary system with significantly atrophic left kidney now with full renal failure. Right stent placed 11/27/24. Much improved overnight. -Urine output brisk but patient is 150 kg and so well within norms. Metabolic activity normal. Okay for home today Please remove Reed catheter Patient will follow-up with me next week with blood work and definitive management (2) KATHLEEN (acute kidney injury): (3) Hyperkalemia: (4) Diabetes mellitus type 2, controlled, without complications: (5) Hypertension, essential, benign: (6) Hyperlipidemia: Qualifiers: Hyperlipidemia type: unspecified Qualified Code(s): E78.5 - Hyperlipidemia, unspecified (7) GERD (gastroesophageal reflux disease): Qualifiers: Esophagitis presence: esophagitis presence not specified Qualified Code(s): K21.9 - Gastro-esophageal reflux disease without esophagitis (8) Sleep apnea: Qualifiers: Sleep apnea type: obstructive Qualified Code(s): G47.33 - Obstructive sleep apnea (adult) (pediatric) (9) BPH (benign prostatic hyperplasia): Qualifiers: Lower urinary tract symptom presence: symptoms absent Qualified Code(s): N40.0 - Benign prostatic hyperplasia without lower urinary tract symptoms
[2024-11-28] MEDS: METOPROLOL SUCCINATE 50 MG TABLET PO SCH (09:19)
[2024-11-28] MEDS: HEPARIN 5,000 UNIT/ML VIAL SUBQ SCH (09:19)
[2024-11-28] MEDS: TAMSULOSIN 0.4 MG CAPSULE PO SCH (09:19)
--- NOTE | 2024-11-28 11:05 | Discharge Summary ---
"Discharge Summary Admit Date: 11/27/24 Discharge Date: 11/28/24 Discharging Provider: Yolanda Ferguson MD Primary Care Provider: Gisel Elmore PA-C Code Status: Attempt Resuscitation Discharge Facility Name: Home, self-care with DIAGNOSES Discharge Diagnoses with Status of Each Condition: Ureterolithiasis, stable Patient found to have right UPJ stone on imaging with associated hydronephrosis, he underwent cystoscopy and right ureteral stent placement on 11/27. He is voiding independently after Villa removal, no longer endorses flank pain or CVA tenderness. He develop post-obstructive diuresis following stent placement but had adequate PO intake, electrolytes are stable and asymptomatic. - Appreciate urology: follow-up with Dr. Figueroa outpatient for lab evaluation and definitive management for ureteral stones - Patient is instructed to seek urgent medical evaluation should he re-develop symptoms including flank pain, dysuria, urinary hesitancy, oliguria, anuria, fevers, chills, nausea/vomiting, weakness, confusion - Patient is instructed to continue adequate PO intake Acute renal failure, resolving and Hyperkalemia, resolving Patient's Cr elevated as high as 7.6 on 11/27, upon discharge it has improved to 5.3 on 11/28. K elevated up to 5.4, now 4.8 on 11/28. - Follow-up BMP outpatient with urology - plan for appointment in one week Type 2 diabetes mellitus, chronic, stable BG well-controlled with Mounjaro injections at home. While inpatient BG readings have been stable < 140. He was managed with low dose correctional insulin but never required it. - Continue Mounjaro injections with outpatient management - Reinforced education regarding signs/symptoms of hyper/hypoglycemia Essential hypertension, chronic, stable Patient normally takes lisinopril and metoprolol at home for blood pressure. SBP 140s-150s upon discharge 11/28. - Currently holding lisinopril due to KATHLEEN, OK to continue home metoprolol - Will need outpatient labwork prior to restarting lisinopril Hyperlipidemia, chronic, stable - Continue home simvastatin Obstructive sleep apnea, chronic, stable - Patient uses CPAP religiously at home, continue use of CPAP HPI History of Present Illness: Andrew Wesley is a 79-year-old male with a past medical history of prior kidney stones with lithotripsy, HTN, HL, GERD, BPH, DANAE, and T2DM on Mounjaro who presents for ureterolithiasis s/p cystoscopy and right ureteral stent placement. Patient initially presented 11/25 in the ED with acute onset of severe right flank pain over 2-3 hours. He did not have urinary symptoms (denied dysuria, urinary frequency/urgency). Workup was revealing for Cr 2.1 (slightly elevated from baseline Cr ~1.8) and CT abdomen findings of 7x4mm right UPJ stone, mild right-sided hydronephrosis, and right perinephric fat stranding consistent with nephrolithiasis and left atrophic kidney. He was treated for pain and advised to follow-up with outpatient urology. He was thus seen by Dr. Figueroa of [facility] 11/26, who recommended potentially urgent intervention pending lab follow-up 11/27 given concerns of worsening KATHLEEN and essentially solitary right kidney function given the patient's left atrophic kidney. He was found to be in renal failure on 11/27 as his Cr further deteriorated to 7.6 and he became hyperkalemic 5.2. He subsequently underwent cystoscopy and right ureteral stent placement the same day. He is admitted under the Hospitalist service for medical management. CONSULTS | PROCEDURES Consultations: Urology Procedures: CT ABDOMEN/PELVIS 11/25/24 PROCEDURE: CT Abdomen/Pelvis WO INDICATIONS: right flank pain for past 2 hours TECHNIQUE: A CT scan of the abdomen and pelvis was performed without the use of intravenous contrast. Images were recorded and evaluated at appropriate window settings. Reformats: coronal and sagittal. For radiation dose reduction, the following was used: automated exposure control, adjustment of mA and/or kV according to patient size. COMPARISON: 08/01/2023 FINDINGS: Image quality: Diagnostic. Lower chest: Bibasilar dependent atelectasis. Heart size is enlarged, no paracardial effusion.. Liver: No contour-deforming mass. Gallbladder: No radiopaque stones or wall thickening. Biliary tree: No intrahepatic or extrahepatic dilation, accounting for age. Spleen: No splenomegaly. Pancreas: No pancreatic ductal dilation. Adrenals: No adrenal nodule. Kidneys and ureters: 7 x 4 mm stone is seen in the region of right UPJ series 2 image 75. Mild right-sided hydronephrosis and right perinephric fat stranding is seen. Additional nonobstructing stones also noted in right kidney. Slightly atrophic appearing left kidney. No left-sided renal stones or hydronephrosis. Simple appearing bilateral renal cysts are seen unchanged from prior study. Stomach, bowel and peritoneum: There is no bowel obstruction. No abnormal bowel wall thickening or mesenteric fat stranding. Appendix is visualized and is within normal limits. Extensive colonic diverticulosis without CT evidence of acute diverticulitis. No free fluid or free air. Lymph nodes: No central or retroperitoneal adenopathy. Vessels: No infrarenal aortic aneurysm. Reproductive organs: Enlarged prostate gland. Bladder: Partially distended urinary bladder. Questionable bladder wall thickening. No discrete bladder wall mass or calcified bladder stones. Pelvic lymph nodes: No adenopathy by size criteria. Bones: No aggressive osseous abnormality. Other: No significant ventral or inguinal hernia. IMPRESSION: 1. 7 x 4 mm right UPJ stone with mild right-sided hydronephrosis and right perinephric fat stranding. 2. Nonobstructing right renal stones are also seen. Bilateral renal cysts. Slightly atrophic left kidney. No left-sided hydronephrosis or hydroureter. Mild bladder wall thickening which may represent chronic outlet obstruction versus low-grade cystitis suggest clinical correlation. Enlarged prostate gland. 3. No bowel obstruction. No abnormal bowel wall thickening. Normal appendix. Extensive colonic diverticulosis without CT evidence of acute diverticulitis. No free fluid or free air. Discrepancy was noted and called to the emergency room at the time of dictation. CYSTOSCOPY W/ R URETERAL STENT PLACEMENT 11/27/24 Operation Date: 11/27/24 12:00 Proposed Procedures p Cystoscopy With Ureteral Stent Placement(Right) - Norberto Figueroa MD Actual Procedures p Cystoscopy With Ureteral Stent Placement(Right) - Norberto Figueroa MD Pre-Op Diagnosis: KATHLEEN,RIGHT URETERAL STONE Anesthesia Type General Case Staff Anesthesia Provider: Natali Armendariz Rep: Andre Guerra Case Times Procedure Start: 11/27/24 12:34 Time out: 11/27/24 12:34 Implants STENT URETERAL [id number] Pre-Op Diagnosis: right ureteral stone Post Op Diagnosis: same Procedure Note Estimated Blood Loss (ml): 1 Findings: right hydronephrosis, stent placed trilobar prostatic hypertrophy Complications: none Other Other Information/Narrative: After informed consent was obtained the patient was brought to the OR and laid in the supine position. The patient was anesthetized per anesthesia protocols and prepped and draped in usual sterile fashion. A formal timeout was performed reconfirming the patient and procedure and laterality. A 22 Stateless cystoscope was advanced easily per urethra into the urinary bladder. He had trilobar hypertrophy of his prostate with a large median lobe. His right ureteral orifice was identified in the crotch between the median lobe and lateral lobe at the expected location on the trigone. A sensor wire was placed up into the kidney under fluoroscopic guidance. A 5 Stateless open-ended ureteral catheter was placed over the wire up into the kidney and gentle retrograde pyelogram confirmed placement within the renal collecting system. We could not see a radiopaque stone. A 6 Stateless 28 cm double-J stent was placed with good curling noted in the kidney and good curl noted in the bladder. The bladder was emptied and a 20 Stateless two-way Villa catheter was placed after Uro-Jet. This concluded the procedure and the patient tolerated the procedure well. He was brought to the PACU without further incident. He will go to the medical service overnight for careful monitoring HOSPITAL COURSE Hospital Course: Patient presented to the ED 11/27 for kidney function assessment via labwork after direction from Dr. Figueroa of general surgery. His CMP was revealing for Cr 7.6, elevated from 2.1 the day prior, K 5.2, and mild leukocytosis WBC 11.7. He was thus admitted for urgent cystoscopy and right ureteral stent placement for treatment of hydronephrosis. He had a Villa catheter placed for strict I/O post- operatively and developed post-obstructive diuresis with over 2L of urine output over the course of 6 hours. He remained asymptomatic however and did not require treatment as he had adequate PO intake. His flank pain was relieved shortly after the procedure and he remained pain-free. POD1, his Cr has improved to 5.3, K decreased to 4.8, WBC normal 9.0. His Villa catheter was removed and he voided his bladder multiple times independently without trouble. There is slight hematuria noted however this is to be expected post-ureteral stent placement; he denies dysuria. He is stable for discharge given the following: improving KATHLEEN, voiding independently, VSS, not experiencing urinary symptoms. He has been directed to follow-up with Dr. Figueroa outpatient to ensure continued improvement of kidney function and definitive management of his ureteral stone. ALLERGIES Allergies Allergy/AdvReac Type Severity Reaction Status Date / Time Penicillins Allergy Severe swelling Verified 11/27/24 09:12 atorvastatin (From Lipitor) Allergy Rash Verified 11/27/24 09:12 cefuroxime (From Ceftin) AdvReac diarrhea, Verified 11/27/24 09:12 nausea ibuprofen AdvReac kidney Verified 11/27/24 09:12 disease MEDICATIONS Ambulatory Orders Medication Instructions Recorded Confirmed acetaminophen 325 mg tablet 325 - 650 mg PO QID PRN pa in 12/26/23 11/27/24 fluticasone propionate 50 1 spray intranasal BID 12/2511/27/24 mcg/actuation nasal spray,suspension gabapentin 300 mg capsule 300 mg PO Q8H PRN pain 12/2511/27/24 Permanent Disabled Placard 12/27/23 11/26/24 blood-glucose meter (Freestyle 12/27/23 11/26/24 [employer] meter) diclofenac sodium 1 % topical gel 2 - 4 g topical QID PRN pain #100 12/27/23 11/27/24 grams lisinopril 20 mg tablet 20 mg PO DAILY #90 tabs 06/1411/27/24 Held on 11/28/24. Instructions: Resume on 12/12/24. Please continue to hold until you re-check your creatinine and it's down back to normal. metoprolol succinate 50 mg 50 mg PO DAILY #90 tabs 06/1411/27/24 tablet,extended release 24 hr tamsulosin 0.4 mg capsule (Flomax) 0.4 mg PO DAILY #90 caps 03/26/24 11/27/24 glipizide 2.5 mg tablet, extended 2.5 mg PO DAILY #90 tabs 06/26/24 11/27/24 release 24 hr simvastatin 20 mg tablet 20 mg PO HS #90 tabs 09/17/2 5 11/27/24 blood sugar diagnostic (FreeStyle #100 ea 10/30/2409/13 Test strips) lancets 28 gauge (Super Thin #100 ea 10/30/24 11/26/24 Lancets) tirzepatide 5 mg/0.5 mL 5 mg (0.5 mL) subcut QWEEK # 2 mL 10/30/24 11/27/24 subcutaneous pen injector ondansetron HCl 4 mg tablet 4 mg PO Q8H PRN nausea and 11/25/24 11/27/24 vomiting #20 tabs oxycodone 5 mg tablet 5 mg PO QID PRN pain #20 tab s 11/25/24 11/27/24 lidocaine 5 % topical patch 3 patch topical DAILY PRN pain 11/27/24 11/27/24 (Lidoderm) loratadine 10 mg tablet (Claritin) 10 mg PO DAILY PRN allergy symptoms 11/27/24 11/27/24 PHYSICAL EXAM AT DISCHARGE Vital Signs: Vital Signs x48h Temp Pulse Resp BP Pulse Ox 11/28/24 12:40 98.2 F 60 18 141/83 H 99 11/28/24 08:11 98.8 F 60 18 170/83 H 97 11/28/24 08:00 98.8 F 60 18 170/83 H 97 11/28/24 07:00 98.8 F 61 20 175/93 H 97 General Appearance: positive No acute distress and Alert Eyes Bilateral: positive Normal inspection and PERRL ENT: positive ENT inspection nml, Pharynx nml and No signs of dehydration Neck: positive Nml inspection, No JVD and Trachea midline Respiratory: positive No respiratory distress and Breath sounds nml; negative Wheezes, Rales or Rhonchi Cardiovascular: positive Regular rate & rhythm and No murmur Peripheral Pulses: positive 2+ Abdomen: positive Non-tender, Nml bowel sounds and No distention Back: positive Nml inspection; negative CVA tenderness (R) or CVA tenderness (L) Skin: positive Color nml, No rash, Warm and Dry Extremities: positive Non-tender and Nml appearance Neurologic/Psychiatric: positive Oriented x3, Motor nml, Sensation nml and Mood/affect nml LABS 11/28/24 05:19 11/28/24 05:19 DIAGNOSTIC IMAGING Diagnostic Imaging Results: Final report reviewed FOLLOW UP Follow Up: Patient to follow-up with urology outpatient for post-operative evaluation, to ensure continued kidney function improvement, and further management for his ureteral stones. TIME SPENT Time Spent in Discharge (Minutes): 45 Discharge Plan Discharge Patient Disposition: Home, Self Care Condition: Stable Prescriptions: Continued simvastatin 20 mg tablet 20 mg PO HS Qty: 90 3RF fluticasone propionate 50 mcg/actuation spray,suspension 1 spray intranasal BID oxycodone 5 mg tablet 5 mg PO QID PRN (Reason: pain) Qty: 20 0RF ondansetron HCl 4 mg tablet 4 mg PO Q8H PRN (Reason: nausea and vomiting) Qty: 20 0RF lidocaine [Lidoderm] 5 % adhesive patch,medicated 3 patch topical DAILY PRN (Reason: pain) Rx Instructions: apply up to 3 patches to painful areas, 12 hour on and 12 hours off loratadine [Claritin] 10 mg tablet 10 mg PO DAILY PRN (Reason: allergy symptoms) Rx Instructions: Take 1 tablet by mouth once a day for allergies metoprolol succinate 50 mg tablet extended release 24 hr 50 mg PO DAILY Qty: 90 3RF Rx Instructions: Take 1 tablet by mouth once daily tamsulosin [Flomax] 0.4 mg capsule 0.4 mg PO DAILY Qty: 90 3RF acetaminophen 325 mg tablet 325 - 650 mg PO QID PRN (Reason: pain) Rx Instructions: Take 1-2 tablet by mouth four times a day as needed for pain or fever gabapentin 300 mg capsule 300 mg PO Q8H PRN (Reason: pain) Rx Instructions: Take 1 capsule by mouth every eight hours as needed for pain for pain (DME) Permanent Disabled Placard [facility] See Rx Instructions .Route Rx Instructions: Patient unable to walk 200 feet without stopping to rest, 1 year pass. (DME) blood-glucose meter [Freestyle [employer]] [facility] See Rx Instructions .Route Rx Instructions: Use 1 each as directed. Freestyle meter diclofenac sodium 1 % gel 2 - 4 g topical QID PRN (Reason: pain) Qty: 100 1RF Rx Instructions: Apply to affected area(s) 2-4 g 4 times daily as needed for pain glipizide 2.5 mg tablet extended release 24hr 2.5 mg PO DAILY Qty: 90 3RF Rx Instructions: for diabetes tirzepatide 5 mg/0.5 mL pen injector 5 mg subcut QWEEK Qty: 2 3RF Rx Instructions: inject 5mg once weekly SC for diabetes, may call in 4 weeks for dose increase (DME) lancets [Super Thin Lancets] 28 gauge [facility] [place] Rx Instructions .Route Qty: 100 3RF Rx Instructions: Use 1 lancet as directed once a day as directed (DME) FreeStyle Test Strip See Rx Instructions .Route Qty: 100 3RF Rx Instructions: Use 1 strip via meter once daily Held lisinopril 20 mg tablet 20 mg PO DAILY Qty: 90 3RF Hold Instructions: Resume on 12/12/24. Please continue to hold until you re- check your creatinine and it's down back to normal. Activity Restrictions/Additional Instructions: DIET - You may resume your normal diet if there is no nausea or vomiting. You may want to avoid spicy, greasy, or heavy foods today to minimize gas. - If nausea or vomiting occurs, don't eat or drink anything for one hour. Then start drinking small amounts of clear liquids. Later, add crackers, gradually building up to your usual diet. ACTIVITY INSTRUCTIONS * Resume normal activity DISCHARGE INSTRUCTIONS * You have a ureteral stent in place on the right. This is temporary. It can last no more than 3 months. It is your responsibility to follow-up with Dr. Figueroa for further management. You still have kidney stones blocking your kidney on the right. The stent is a temporary measure to unblock them * Call for fever greater than 100.4 Fahrenheit * It is normal to have increased frequency and urgency of urination with the stent in place. It is normal to have blood in the urine with the stent in place MEDICATIONS * Your kidney function is still returning. For this reason you must avoid some medications which can worsen kidney function * Do not take your lisinopril or gabapentin until cleared by Dr Figueroa * Take Tylenol as needed for pain or irritation.No more than 3000mg in one day. ANESTHESIA PRECAUTIONS Anesthesia and medications given during surgery remain in your body up to 24 hours. This may slow reaction time and/or decrease coordination. FOR THE NEXT 24 HOURS: - Have a responsible person with you - Avoid any activity that requires you to be alert and coordinated - DO NOT DRIVE a motor vehicle for 24 hours or as long as you are taking opoid pain medication - Do not drink alcoholic beverages - Do not smoke unattended Patient Date Escort Date RN Date Diet: Diabetic Interventions: Discharge Last Done: 11/28/24 12:47 Discharge Checklist - Nursing Last Done: 11/28/24 12:47 Discharge Vital Signs (30 Minutes) Last Done: 11/28/24 12:40 Print Language: Namibian Patient Instructions: Surg Dc, Having a Ureteral Stent Stand Alone Forms: PCP List Follow-up Care: Norberto Figueroa MD [Provider Admit Priv/Credential, Urology] Referral Note: You will be contacted for follow-up with Dr. Figueroa next week. Make sure you stop at the lab earlier that day to obtain blood work (basic metabolic panel) Gisel Elmore PA-C [Primary Care Provider, Family Practice] Vitals documented within 30 minutes of discharge?: Yes"
[2024-11-28 12:47] VITALS: BP 141/83; TEMP 98.2; O2SAT 99
== END 2024-11-28 12:48 | disposition home or self-care (01) ==
LOC: ED 08:47 → MS3 08:47
PROVIDERS: ADMIT Internal Medicine; ATTEND Internal Medicine